=== PATIENT | female | born 1960 | race Caucasian/White ===

== ENCOUNTER 2017-08-02 08:54 | Emergency (ER) | payer SELFPAY ==
[~2017-08-02] VITALS: Ht 160 cm; Wt 80.0 kg
[~2017-08-02 08:54] MED LIST: IBUP800T23 PO; LEVO.15 PO; PENI500T PO; PERI0.126 SWISH-SPIT
[2017-08-02 08:57] VITALS: BP 133/84; PULSE 94; RESP 16; TEMP 98.3; O2SAT 95
[2017-08-02 09:15] VITALS: BP 135/73; PULSE 87; RESP 19; TEMP 99.5; O2SAT 96
--- NOTE | 2017-08-02 09:46 | PD ---
HPI Chief Complaint: Psychiatric Symptoms Time Seen by Provider: 09:22 Travel History International Travel<30 days: No Contact w/Intl Traveler<30days: No Traveled to known affect area: No History of Present Illness HPI 56-year-old female presents to the emergency department voluntarily for psychiatric evaluation because she has not been able to sleep for the past 2-3 days. She has history of bipolar disorder and does not take medication. Denies suicidal or homicidal ideations. Denies visual hallucinations. Reports hearing noises. Denies feeling depressed. She has no current medical complaints. Denies chest pain, shortness of breath, abdominal pain, nausea, vomiting, change in urine or stool. Allergies to codeine. PFSH Past Medical History ADD: Yes Bipolar Disorder: Yes Anxiety: Yes Diminished Hearing: No Musculoskeletal: Yes (DJD/SPINE) Thyroid Disease: Yes Tetanus Vaccination: Unknown Influenza Vaccination: No ?: Not Menopausal: Yes Past Surgical History Section: Yes (X1) Gynecologic Surgery: Yes (C SECTION) Tonsillectomy: Yes Social History Alcohol Use: Yes (RARELY) Tobacco Use: Yes (5 CIGS A DAY) Substance Use: No Allergies-Medications (Allergen,Severity, Reaction): Coded Allergies: codeine (Unverified Adverse Reaction, Intermediate, NAUSEA, 08/02/17) Reported Meds & Prescriptions Reported Meds & Active Scripts Active Reported Synthroid (Levothyroxine Sodium) 150 Mcg Tab 150 Mcg PO DAILY Review of Systems Except as stated in HPI: all other systems reviewed are Neg Physical Exam Narrative GENERAL: Well-nourished, well-developed female patient, in no acute distress SKIN: Warm and dry. HEAD: Atraumatic. Normocephalic. EYES: Pupils equal and round. ENT: Mucosa pink and moist. NECK: Supple. Trachea midline. CARDIOVASCULAR: Regular rate and rhythm. No murmur appreciated. RESPIRATORY: No accessory muscle use. Clear to auscultation. Breath sounds equal bilaterally. GASTROINTESTINAL: Abdomen soft, non-tender, nondistended. Hepatic and splenic margins not palpable. Bowel sounds are active 4 quadrants. MUSCULOSKELETAL: No obvious deformities. No clubbing. No cyanosis. No edema. BACK: No CVA tenderness. NEUROLOGICAL: Awake and alert. Oriented 3. No obvious cranial nerve deficits. Motor grossly within normal limits. Normal speech. Moves all extremities. 5/5 strength to all extremities. PSYCHIATRIC: No delusional thought processes. No hallucinations. Data Data Last Documented VS Vital Signs Date Time Temp Pulse Resp B/P (MAP) Pulse Ox O2 Delivery O2 Flow Rate FiO2 08/02/17 09:15 99.5 87 19 135/73 (93) 96 Room Air Orders Orders Complete Blood Count With Diff (08/02/17 09:22) Comprehensive Metabolic Panel (08/02/17:22) Psych Screen (08/02/17:22) Drug Screen, Random Urine (08/02/17:22) Alcohol (Ethanol) (08/02/17:22) Salicylates (Aspirin) (08/02/17:22) Tylenol (Acetaminophen) (08/02/17:22) MDM Medical Decision Making Medical Screen Exam Complete: Yes Emergency Medical Condition: Yes Medical Record Reviewed: Yes Differential Diagnosis Encounter for psychiatric evaluation, medical clearance for psych evaluation, insomnia, bipolar disorder Narrative Course 56-year-old female presents for psychiatric evaluation for insomnia. History of bipolar disorder. Does not take medications. Denies suicidal or homicidal ideations. Says she's been hearing noises. Denies other hallucinations. Physical examination and vital signs are essentially unremarkable. Patient has no medical complaints to report. Psych screen has been ordered. If the laboratory results are unremarkable, the patient will be medically cleared for psychiatric evaluation and disposition. Diagnosis Primary Impression: Medical clearance for psychiatric admission Condition: Stable Padmini Covington COTTON BALER Aug 02, 2017 09:46
[2017-08-02 10:08] LABS: AUTOMATED NEUTROPHIL # 5.9 TH/MM3 (1.8-7.7); BASOPHIL # 0.1 TH/MM3 (0-0.2); BASOPHIL % 0.7 % (0.0-2.0); EOSINOPHIL # 0.4 TH/MM3 (0-0.4); EOSINOPHIL % 4.9 % (0.0-4.0); HEMATOCRIT 42.2 % (35.0-46.0); HEMO FLAGS DIFF FINAL; LYMPH % 22.9 % (9.0-44.0); LYMPHOCYTE # 2.1 TH/MM3 (1.0-4.8); MEAN CELL VOLUME 88.6 FL (80.0-100.0); MEAN CORPUSCULAR HEMOGLOBIN 30.8 PG (27.0-34.0); MEAN CORPUSCULAR HGB CONC 34.8 % (32.0-36.0); MONO % 5.5 % (0.0-8.0); PLATELET COUNT 321 TH/MM3 (150-450); RED BLOOD COUNT 4.76 MIL/MM3 (4.00-5.30); RED CELL DISTRIBUTION WIDTH 12.4 % (11.6-17.2)
[2017-08-02 10:22] LABS: ALT (GPT) 53 U/L (10-53); ANION GAP 7 MEQ/L (5-15); AST (GOT) 20 U/L (15-37); BLOOD UREA NITROGEN 19 MG/DL (7-18); CHLORIDE 104 MEQ/L (98-107); GLOMERULAR FILTRATION RATE 76 ML/MIN (>89); POTASSIUM 3.9 MEQ/L (3.5-5.1); SODIUM (NA) 138 MEQ/L (136-145)
[2017-08-02 10:24] LABS: ALCOHOL LESS THAN 3 MG/DL (0-5)
[2017-08-02 10:25] LABS: ALKALINE PHOSPHATASE 104 U/L (45-117); TOTAL BILIRUBIN ADULT 0.3 MG/DL (0.2-1.0)
[2017-08-02 10:33] LABS: ACETAMINOPHEN LESS THAN 2.0 MCG/ML (10.0-30.0)
[2017-08-02 11:59] VITALS: BP 188/86; PULSE 74; RESP 18; O2SAT 100
[2017-08-02 14:47] VITALS: BP 168/79; PULSE 63; RESP 18; O2SAT 99
== END 2017-08-02 16:22 | disposition left against medical advice (07) ==
LOC: NEPD 08:54
DX: F31.9 Bipolar disorder, unspecified (principal); Z72.0 Tobacco use
CPT/HCPCS: 80053; 80307; 85025; 99283

== ENCOUNTER 2017-08-03 14:47 | Emergency (ER) | payer SELFPAY ==
[~2017-08-03] VITALS: Ht 160 cm; Wt 100.0 kg
[~2017-08-03 14:47] MED LIST changes: -IBUP800T23 PO; -PENI500T PO; -PERI0.126 SWISH-SPIT
[2017-08-03 14:51] VITALS: BP 129/81; PULSE 88; RESP 22; TEMP 99.6; O2SAT 94
--- NOTE | 2017-08-03 14:56 | PD ---
Physical Exam Date Seen by Provider: Aug 03, 2017 Time Seen by Provider: 14:54 Narrative 56 yo female here for psych eval. Feeling that needs psych eval. Not sleeping. Seen yesterday and had blood work and sent home. No other medical issues. Here voluntarily. Blood work yesterday showed positive for cocaine. Vitals are stable in triage. Awaiting bed placement. Data Data Last Documented VS Vital Signs Date Time Temp Pulse Resp B/P (MAP) Pulse Ox O2 Delivery O2 Flow Rate FiO2 08/03/17 14:51 99.6 88 22 129/81 (97) 94 Room Air [facility] Medical Record Reviewed: Yes Supervised Visit with DELMI: Jim Dugan Aug 03, 2017 14:56
== END 2017-08-03 17:18 | disposition left against medical advice (07) ==
LOC: NED 14:47
DX: F99 Mental disorder, not otherwise specified (principal)
CPT/HCPCS: 99282

== ENCOUNTER 2017-09-23 19:37 | Emergency (ER) | payer SELFPAY ==
[2017-09-23 19:39] VITALS: BP 144/67; PULSE 92; RESP 16; TEMP 98.1; O2SAT 99
[2017-09-23 21:21] VITALS: BP 123/83; PULSE 82; RESP 18; TEMP 98.4; O2SAT 100
--- NOTE | 2017-09-23 21:40 | PD ---
HPI Chief Complaint: Fall Time Seen by Provider: 21:25 Travel History International Travel<30 days: No Contact w/Intl Traveler<30days: No Traveled to known affect area: No History of Present Illness HPI Patient is a 56-year-old female who presents to emergency room after a fall today. Patient reports that she was trying to get into her car, reports that her flip flop got caught in asphalt which resulted in her falling backwards and landing onto her left side. Patient reports that she did hit her head on the asphalt, reports no loss of consciousness. Patient reports mild posterior headache, which that she has pains to her left hand digit #3 as her finger bent backwards during the fall, patient also complains of swelling and pain to the left ankle. Patient reports that she has chronic low back pain, reports that she has disc disease but reports acute on chronic low back pain at this time. PFSH Past Medical History ADD: Yes Bipolar Disorder: Yes Anxiety: Yes Diminished Hearing: No Musculoskeletal: Yes (DJD/SPINE) Thyroid Disease: Yes ?: Not Menopausal: Yes Past Surgical History Section: Yes (X1) Gynecologic Surgery: Yes (C SECTION) Tonsillectomy: Yes Social History Alcohol Use: Yes (RARELY) Tobacco Use: Yes (5 CIGS A DAY) Substance Use: No Allergies-Medications (Allergen,Severity, Reaction): Coded Allergies: codeine (Unverified Adverse Reaction, Intermediate, NAUSEA, 08/02/17) Reported Meds & Prescriptions Reported Meds & Active Scripts Active Reported Synthroid (Levothyroxine Sodium) 150 Mcg Tab 150 Mcg PO DAILY Review of Systems General / Constitutional: No: Fever Eyes: No: Visual changes HENT: Positive: Headaches Cardiovascular: No: Chest Pain or Discomfort Respiratory: No: Shortness of Breath Gastrointestinal: No: Abdominal Pain Genitourinary: No: Dysuria Musculoskeletal: Positive: Limited ROM, Pain (left finger digit #3, left ankle pain, low back pain) Skin: No Rash Neurologic: No: Weakness Psychiatric: No: Depression Endocrine: No: Polydipsia Hematologic/Lymphatic: No: Easy Bruising Physical Exam Narrative GENERAL: Mild distress SKIN: Focused skin assessment warm/dry. HEAD: Atraumatic. Normocephalic. EYES: Pupils equal and round. No scleral icterus. No injection or drainage. ENT: No nasal bleeding or discharge. Mucous membranes pink and moist. NECK: Trachea midline. No JVD. CARDIOVASCULAR: Regular rate and rhythm. No murmur appreciated. RESPIRATORY: No accessory muscle use. Clear to auscultation. Breath sounds equal bilaterally. GASTROINTESTINAL: Abdomen soft, non-tender, nondistended. Hepatic and splenic margins not palpable. MUSCULOSKELETAL: No obvious deformities. No clubbing. No cyanosis. left hand: pain with ROM to left digit #3, no open fx, pulses intact, neurovascularly intact, normal range of motion to left wrist and left shoulder, right hand: Normal exam Left lower extremity: Normal range of motion to the left hip, left knee, patient with pain to the lateral malleolus, no signs of open fracture, pulses intact, neurovascular intact Right lower extremity: Normal exam There is no cervical or thoracic midline tenderness no lumbar midline tenderness , patient with lumbar paraspinal tenderness. NEUROLOGICAL: Awake and alert. No obvious cranial nerve deficits. Motor grossly within normal limits. Normal speech. PSYCHIATRIC: Appropriate mood and affect; insight and judgment normal. Data Data Last Documented VS Vital Signs Date Time Temp Pulse Resp B/P (MAP) Pulse Ox O2 Delivery O2 Flow Rate FiO2 09/23/17 21:21 98.4 82 18 123/83 (96) 100 Room Air Orders Orders Ct Brain W/O Iv Contrast(Rout) (09/23/17 21:31) Spine, Lumbar - Ltd (Ap & Lat) (09/23/17 ) Hand, Complete ([id number]) (09/23/17 ) Ankle, Complete ([id number]) (09/23/17 ) Ice/Cold Pack (09/23/17 21:32) Ketorolac Inj (Toradol Inj) (09/23/17 21:45) Shoulder, Complete (>2vws) (09/23/17 ) Ed Discharge Order (09/24/17 00:14) MDM Medical Decision Making Medical Screen Exam Complete: Yes Emergency Medical Condition: Yes Medical Record Reviewed: Yes Interpretation(s) Vital Signs Date Time Temp Pulse Resp B/P (MAP) Pulse Ox O2 Delivery O2 Flow Rate FiO2 09/23/17 21:21 98.4 82 18 123/83 (96) 100 Room Air 09/23/17 19:39 98.1 92 16 144/67 (92) 99 Room Air Differential Diagnosis Lumbar strain, fracture, versus strain, intracranial hemorrhage, concussion Narrative Course During the course of the patients emergency department visit, the patients history, examination, and differential diagnosis were reviewed with the patient. The patient was placed on a pm head cook with oximetry and frequent blood pressure monitoring. Radiology studies were reviewed and remarkable for: CT of the head with no acute disease X-ray of the right shoulder: No acute disease X-ray of the left hand: No acute disease X-ray of left ankle: Mild lateral soft tissue swelling, no bony injury seen. X-ray of the lumbar spine: Degenerative changes Patient with no acute fracture this time. I reviewed all studies with patient in detail, patient will follow-up with her primary care doctor as well as orthopedic surgeon, she will return to the emergency room as needed. Diagnosis Primary Impression: Ankle sprain Qualified Codes: S93.402A - Sprain of unspecified ligament of left ankle, initial encounter Additional Impressions: Low back pain Qualified Codes: M54.5 - Low back pain; G89.29 - Other chronic pain Head injury Qualified Codes: S09.90XA - Unspecified injury of head, initial encounter Patient Instructions: General Instructions Additional Instructions: Please provide patient with a copy of her studies at discharge Please follow up with your primary care doctor in 2-3 days Return to the ER if symptoms worsen or progress Return to the ER as needed Please follow up with orthopedic surgeon and return to the emergency room as needed. Disposition: 01 DISCHARGE HOME Condition: Stable Dixie Pazfer Cristino BEDOLLA Sep 23, 2017 21:40
[2017-09-23] MEDS ORDERED: KETOROLAC TROMETHAMINE 60 MG/2 ML (IM) VIAL IM ONE (21:45)
--- NOTE | 2017-09-23 22:37 | RADRPT ---
EXAM DATE/TIME: 09/23/2017 21:48 [facility] COMPARISON: No previous studies available for comparison. INDICATIONS : Fall tonight. Pain in 3rd digit. MEDICAL HISTORY : None. SURGICAL HISTORY : None. ENCOUNTER: Initial ACUITY: 1 day PAIN SCORE: 7/10 LOCATION: Left Hand FINDINGS: Three view examination of the left hand demonstrates no soft tissue swelling, dislocation, or fractur e. The carpal bones appear intact. The interphalangeal and metacarpophalangeal joints are intact. Bony mineralization is normal. CONCLUSION: No acute disease. Jamil Chin MD on September 23, 2017 at 22:34 Board Certified Radiologist. This report was verified electronically.
--- NOTE | 2017-09-23 22:38 | RADRPT ---
EXAM DATE/TIME: 09/23/2017 21:52 [facility] COMPARISON: No previous studies available for comparison. INDICATIONS : Fall tonight. Pain in lateral side. MEDICAL HISTORY : None. SURGICAL HISTORY : None. ENCOUNTER: Initial ACUITY: 1 day PAIN SCORE: 7/10 LOCATION: Left Ankle FINDINGS: Three view exam was performed of the left ankle. The bony structures are in normal alignment. No ev idence of fracture, dislocation. The ankle mortise is intact. No radiopaque foreign bodies are seen . Bony mineralization is normal. There is mild lateral soft tissue swelling. CONCLUSION: Mild lateral soft tissue swelling. A bony injury is not seen. Jamil Chin MD on September 23, 2017 at 22:35 Board Certified Radiologist. This report was verified electronically.
--- NOTE | 2017-09-23 22:38 | RADRPT ---
EXAM DATE/TIME: 09/23/2017 21:52 [facility] COMPARISON: No previous studies available for comparison. INDICATIONS : Fall tonight. MEDICAL HISTORY : None. SURGICAL HISTORY : None. ENCOUNTER: Initial ACUITY: 1 day PAIN SCORE: 7/10 LOCATION: Right Shoulder. FINDINGS: The glenohumeral and acromioclavicular joints are normally aligned. There is mild hypertrophic change at the acromioclavicular joint. No fracture is seen. CONCLUSION: No acute disease. Jamil Chin MD on September 23, 2017 at 22:36 Board Certified Radiologist. This report was verified electronically.
--- NOTE | 2017-09-23 22:40 | RADRPT ---
EXAM DATE/TIME: 09/23/2017 21:58 [facility] COMPARISON: No previous studies available for comparison. INDICATIONS : Fall tonight. MEDICAL HISTORY : None. SURGICAL HISTORY : None. ENCOUNTER: Initial ACUITY: 1 day PAIN SCORE: 8/10 LOCATION: Bilateral L-spine FINDINGS: The lumbar vertebral bodies are normal in height. They are normally aligned. There is disc space narr owing and vacuum phenomenon seen at the L4-L5 level. There is facet hypertrophy at the L4-L5 and L5-S 1 levels. The sacroiliac joints are normal. Minimal marginal osteophytes are seen at the lower lumbar spine. CONCLUSION: Degenerative change. Jamil Chin MD on September 23, 2017 at 22:37 Board Certified Radiologist. This report was verified electronically.
--- NOTE | 2017-09-23 22:44 | RADRPT ---
EXAM DATE/TIME: 09/23/2017 22:15 [facility] COMPARISON: No previous studies available for comparison. INDICATIONS : Trauma, fall. RADIATION DOSE: 32.64 CTDIvol (mGy) MEDICAL HISTORY : None SURGICAL HISTORY : None. ENCOUNTER: Initial ACUITY: 1 day PAIN SCALE: 4/10 LOCATION: cranial TECHNIQUE: Multiple contiguous axial images were obtained of the head. Using automated exposure control and adj ustment of the mA and/or kV according to patient size, radiation dose was kept as low as reasonably a chievable to obtain optimal diagnostic quality images. DICOM format image data is available electro nically for review and comparison. FINDINGS: CEREBRUM: The ventricles are normal for age. No evidence of midline shift, mass lesion, hemorrhage or acute in farction. No extra-axial fluid collections are seen. POSTERIOR FOSSA: The cerebellum and brainstem are intact. The 4th ventricle is midline. The cerebellopontine angle i s unremarkable. EXTRACRANIAL: The visualized portion of the orbits is intact. SKULL: The calvaria is intact. No evidence of skull fracture. CONCLUSION: No acute disease. Jamil Chin MD on September 23, 2017 at 22:42 Board Certified Radiologist. This report was verified electronically.
== END 2017-09-24 00:44 | disposition home or self-care (01) ==
LOC: NEPD 19:37
DX: S93.402A Sprain of unspecified ligament of left ankle, initial encounter (principal); S09.90XA Unspecified injury of head, initial encounter; M54.5 Low back pain; G89.29 Other chronic pain; M79.642 Pain in left hand; W19.XXXA Unspecified fall, initial encounter; Y93.89 Activity, other specified
CPT/HCPCS: 70450; 72100; 73030; 73130; 73610; 96372; 99285; J1885

== ENCOUNTER 2018-07-22 15:54 | Inpatient (IN) ==
[2018-07-22 22:18] LABS: Baso # (Auto) 0.1 th/mm3 (0.0-0.2); Eos # (Auto) 0.3 th/mm3 (0.0-0.4); Eos % (Auto) 2.7 % (0.0-4.0); Hematocrit 43.2 % (35.0-46.0); Hemoglobin 15.5 gm/dL (11.6-15.3); Lymph # (Auto) 3.3 th/mm3 (1.0-4.8); Lymph % (Auto) 29.1 % (9.0-44.0); Mean Corpuscular HGB Conc 35.8 % (32.0-36.0); Mean Corpuscular Hemoglobin 31.5 pg (27.0-34.0); Mean Corpuscular Volume 88.1 fL (80.0-100.0); Mean Platelet Volume 8.2 fL (7.0-11.0); Mono # (Auto) 0.8 th/mm3 (0.0-0.9); Mono % (Auto) 6.9 % (0.0-8.0); Neut # (Auto) 6.7 th/mm3 (1.8-7.7); Neut % (Auto) 60.3 % (16.0-70.0); Platelet Count 358 th/mm3 (150-450); Red Cell Distribution Width 12.5 % (11.6-17.2); White Blood Count 11.2 th/mm3 (4.0-11.0)
[2018-07-22 22:19] LABS: Amphetamine Screen,Urine Neg (Neg); Barbiturate Screen,Urine Neg (Neg); Cannabinoid Screen,Urine Neg (Neg); Cocaine Screen,Urine Neg (Neg)
[2018-07-22 22:20] LABS: Opiate Screen,Urine Neg (Neg)
[2018-07-22 22:40] LABS: Alanine Aminotransferase 206 U/L (10-53); Albumin 3.3 g/dL (3.4-5.0); Anion Gap 13 meq/L (5-15); Aspartate Aminotransferase 114 U/L (15-37); Blood Urea Nitrogen 18 mg/dL (7-18); Calcium 8.6 mg/dL (8.5-10.1); Carbon Dioxide 26.4 meq/L (21.0-32.0); Chloride 94 meq/L (98-107); Glomerular Filtration Rate 50 mL/min (>89); Sodium 133 meq/L (136-145)
[2018-07-22 22:43] LABS: Glucose,Random 603 mg/dL (74-106)
[2018-07-22 22:50] LABS: Alkaline Phosphatase 117 U/L (45-117); Total Protein 7.1 g/dL (6.4-8.2)
[2018-07-22] MEDS ORDERED: Ibuprofen 600 MG Tablet PO ONE (22:50)
--- NOTE | 2018-07-22 23:16 | ED ---
HPI General Chief Complaint: Psychiatric Symptoms Stated Complaint: eval Time Seen by Provider: 07/22/18 21:07 Source: patient Mode of arrival: ambulatory Limitations: no limitations History of Present Illness HPI Narrative: 57-year-old female with history of hypothyroidism presents the ED for voluntary psychiatric evaluation. Patient endorses suicidal ideations times 1 week. She denies a specific plan. She states that she is feeling suicidal because she recently became homeless. On presentation she complains of dental pain with facial swelling. Pain is aching, 6/10, worsened by cold fluids. No alleviating factors reported. She denies fever, chills, nausea, vomiting, difficulty swallowing her own secretions. She endorses broken and missing teeth in the area. She does not have a dentist. She states that she takes levothyroxine daily. No treatment attempted before arrival. Related Data Home Medications Medication Instructions Recorded Confirmed levothyroxine 88 mcg PO DAILY 07/22/18 07/22/18 Previous Rx's Medication Instructions Recorded metformin 500 mg PO BID #60 tab 07/23/18 penicillin V potassium 500 mg PO Q6H 10 Days #40 tab 07/23/18 Allergies Allergy/AdvReac Type Severity Reaction Status Date / Time codeine AdvReac Intermediate NAUSEA Verified 07/22/18 21:32 Review of Systems ROS: all other systems reviewed are negative PMFSH Social History Social History Substance History: Past History Second Hand Smoke Exposure: Yes Smoking Status: Heavy tobacco smoker Tobacco Type: Cigarettes How Often Do You Have a Drink Containing Alcohol: Never Recent Travel in [facility] within the Last 8 Weeks: No Recent Out of Country Travel within the Last 8 Weeks: No Immunization History Tetanus Immunization: Unsure Hx Influenza Vaccine This Season: No Exam Narrative Exam Narrative: GENERAL: Well-nourished, well-developed disheveled white female no acute distress. SKIN: Focused skin assessment warm/dry. HEAD: Atraumatic. Normocephalic. EYES: Pupils equal and round. No scleral icterus. No injection or drainage. ENT: No nasal bleeding or discharge. Mucous membranes pink and moist. DENTAL: Poor dentition overall. Several missing and broken teeth in the right lower mandible. Gingivitis present. No drainable abscess noted. NECK: Trachea midline. No JVD. CARDIOVASCULAR: Regular rate and rhythm. No murmur appreciated. RESPIRATORY: No accessory muscle use. Clear to auscultation. Breath sounds equal bilaterally. GASTROINTESTINAL: Abdomen soft, non-tender, nondistended. Hepatic and splenic margins not palpable. MUSCULOSKELETAL: No obvious deformities. No clubbing. No cyanosis. No edema. NEUROLOGICAL: Awake and alert. No obvious cranial nerve deficits. Motor grossly within normal limits. Normal speech. PSYCHIATRIC: Appropriate mood and affect; insight and judgment normal. Course Initial Documented Vital Signs Temperature 98.2 F 07/22/18 15:56 Pulse Rate 85 07/22/18 15:56 Respiratory Rate 16 07/22/18 15:56 Blood Pressure 122/78 07/22/18 15:56 Pulse Oximetry 97 07/22/18 15:56 Last Documented Vital Signs Temperature 97.4 F L 07/25/18 06:02 Pulse Rate 65 07/25/18 06:02 Respiratory Rate 16 07/25/18 06:02 Blood Pressure 89/55 L 07/25/18 06:02 Pulse Oximetry 95 07/25/18 06:02 Medical Decision Making MDM Narrative Medical decision making narrative: 57-year-old female presents the ED for voluntary psychiatric evaluation. Also complains of dental pain. Vitals reviewed. On physical exam she has several broken teeth and tender erythema of the gum lines. Exam otherwise unremarkable. Lab work reveals blood glucose 603. She was administered 8 units of insulin, allowed to rehydrate. Blood glucose was checked periodically through the night. Blood glucose this morning 383. Patient was administered 6 additional units of insulin. Will start her on metformin 500 mg twice daily. Will also treat the dental problem with penicillin VK 500 mg 4 times daily times 10 days. The patient is medically cleared for psychiatric evaluation. Medical Screen Exam Complete: Yes Emergency Medical Condition: Yes Differential Diagnosis Differential Diagnosis: Adjustment disorder versus anxiety versus bipolar versus depression versus dementia versus malingering versus mood disorder versus substance-induced mood disorder versus dental pain versus dental fracture versus dentalgia versus new onset diabetes versus other Lab Data Result diagrams: 07/22/18 22:00 07/22/18 22:00 Lab Results 07/22/18 07/22/18 07/22/18 Range/Units 22:00 22:00 22:00 WBC 11.2 H (4.0-11.0) th/mm3 RBC 4.90 (4.00-5.30) mil/mm3 Hgb 15.5 H (11.6-15.3) gm/dL Hct 43.2 (35.0-46.0) % MCV 88.1 (80.0-100.0) fL MCH 31.5 (27.0-34.0) pg MCHC 35.8 (32.0-36.0) % RDW 12.5 (11.6-17.2) % Plt Count 358 (150-450) th/mm3 MPV 8.2 (7.0-11.0) fL Neut % (Auto) 60.3 (16.0-70.0) % Lymph % (Auto) 29.1 (9.0-44.0) % [place] % (Auto) 6.9 (0.0-8.0) % Eos % (Auto) 2.7 (0.0-4.0) % Baso % (Auto) 1.0 (0.0-2.0) % Neut # (Auto) 6.7 (1.8-7.7) th/mm3 Lymph # (Auto) 3.3 (1.0-4.8) th/mm3 [place] # (Auto) 0.8 (0.0-0.9) th/mm3 Eos # (Auto) 0.3 (0.0-0.4) th/mm3 Baso # (Auto) 0.1 (0.0-0.2) th/mm3 WBC Differential . Differential Comment Auto diff final Sodium 133 L (136-145) meq/L Potassium 4.0 (3.5-5.1) meq/L Chloride 94 L (98-107) meq/L Carbon Dioxide 26.4 (21.0-32.0) meq/L Anion Gap 13 (5-15) meq/L BUN 18 (7-18) mg/dL Creatinine 1.13 H (0.50-1.00) mg/dL Estimated GFR 50 L (>89) mL/min POC Glucose (68-110) mg/dl Random Glucose 603 H* (74-106) mg/dL Hemoglobin A1c (4.3-6.0) % Calcium 8.6 (8.5-10.1) mg/dL Total Bilirubin 0.6 (0.2-1.0) mg/dL AST 114 H (15-37) U/L ALT 206 H (10-53) U/L Alkaline Phosphatase 117 (45-117) U/L Total Protein 7.1 (6.4-8.2) g/dL Albumin 3.3 L (3.4-5.0) g/dL Triglycerides (42-150) mg/dL Cholesterol (120-200) mg/dL LDL Cholesterol, Calc (0-99) mg/dL HDL Cholesterol (40.0-60.0) mg/dL Cholesterol/HDL Ratio Ratio TSH 23.000 H (0.358-3.740) uIU/mL Urine Opiates Screen Neg (Neg) Ur Barbiturates Screen Neg (Neg) Ur Amphetamines Screen Neg (Neg) U Benzodiazepines Scrn Neg (Neg) Urine Cocaine Screen Neg (Neg) U Cannabinoids Screen Neg (Neg) Serum Alcohol Less than 3 (0-5) mg/dL 07/22/18 07/22/18 07/23/18 Range/Units 22:53 23:58 02:29 WBC (4.0-11.0) th/mm3 RBC (4.00-5.30) mil/mm3 Hgb (11.6-15.3) gm/dL Hct (35.0-46.0) % MCV (80.0-100.0) fL MCH (27.0-34.0) pg MCHC (32.0-36.0) % RDW (11.6-17.2) % Plt Count (150-450) th/mm3 MPV (7.0-11.0) fL Neut % (Auto) (16.0-70.0) % Lymph % (Auto) (9.0-44.0) % [place] % (Auto) (0.0-8.0) % Eos % (Auto) (0.0-4.0) % Baso % (Auto) (0.0-2.0) % Neut # (Auto) (1.8-7.7) th/mm3 Lymph # (Auto) (1.0-4.8) th/mm3 [place] # (Auto) (0.0-0.9) th/mm3 Eos # (Auto) (0.0-0.4) th/mm3 Baso # (Auto) (0.0-0.2) th/mm3 WBC Differential Differential Comment Sodium (136-145) meq/L Potassium (3.5-5.1) meq/L Chloride (98-107) meq/L Carbon Dioxide (21.0-32.0) meq/L Anion Gap (5-15) meq/L BUN (7-18) mg/dL Creatinine (0.50-1.00) mg/dL Estimated GFR (>89) mL/min POC Glucose 563 H* 587 H* 493 H* (68-110) mg/dl Random Glucose (74-106) mg/dL Hemoglobin A1c (4.3-6.0) % Calcium (8.5-10.1) mg/dL Total Bilirubin (0.2-1.0) mg/dL AST (15-37) U/L ALT (10-53) U/L Alkaline Phosphatase (45-117) U/L Total Protein (6.4-8.2) g/dL Albumin (3.4-5.0) g/dL Triglycerides (42-150) mg/dL Cholesterol (120-200) mg/dL LDL Cholesterol, Calc (0-99) mg/dL HDL Cholesterol (40.0-60.0) mg/dL Cholesterol/HDL Ratio Ratio TSH (0.358-3.740) uIU/mL Urine Opiates Screen (Neg) Ur Barbiturates Screen (Neg) Ur Amphetamines Screen (Neg) U Benzodiazepines Scrn (Neg) Urine Cocaine Screen (Neg) U Cannabinoids Screen (Neg) Serum Alcohol (0-5) mg/dL 07/23/18 07/23/18 07/23/18 Range/Units 05:18 06:55 10:03 WBC (4.0-11.0) th/mm3 RBC (4.00-5.30) mil/mm3 Hgb (11.6-15.3) gm/dL Hct (35.0-46.0) % MCV (80.0-100.0) fL MCH (27.0-34.0) pg MCHC (32.0-36.0) % RDW (11.6-17.2) % Plt Count (150-450) th/mm3 MPV (7.0-11.0) fL Neut % (Auto) (16.0-70.0) % Lymph % (Auto) (9.0-44.0) % [place] % (Auto) (0.0-8.0) % Eos % (Auto) (0.0-4.0) % Baso % (Auto) (0.0-2.0) % Neut # (Auto) (1.8-7.7) th/mm3 Lymph # (Auto) (1.0-4.8) th/mm3 [place] # (Auto) (0.0-0.9) th/mm3 Eos # (Auto) (0.0-0.4) th/mm3 Baso # (Auto) (0.0-0.2) th/mm3 WBC Differential Differential Comment Sodium (136-145) meq/L Potassium (3.5-5.1) meq/L Chloride (98-107) meq/L Carbon Dioxide (21.0-32.0) meq/L Anion Gap (5-15) meq/L BUN (7-18) mg/dL Creatinine (0.50-1.00) mg/dL Estimated GFR (>89) mL/min POC Glucose 383 H 323 H 354 H (68-110) mg/dl Random Glucose (74-106) mg/dL Hemoglobin A1c (4.3-6.0) % Calcium (8.5-10.1) mg/dL Total Bilirubin (0.2-1.0) mg/dL AST (15-37) U/L ALT (10-53) U/L Alkaline Phosphatase (45-117) U/L Total Protein (6.4-8.2) g/dL Albumin (3.4-5.0) g/dL Triglycerides (42-150) mg/dL Cholesterol (120-200) mg/dL LDL Cholesterol, Calc (0-99) mg/dL HDL Cholesterol (40.0-60.0) mg/dL Cholesterol/HDL Ratio Ratio TSH (0.358-3.740) uIU/mL Urine Opiates Screen (Neg) Ur Barbiturates Screen (Neg) Ur Amphetamines Screen (Neg) U Benzodiazepines Scrn (Neg) Urine Cocaine Screen (Neg) U Cannabinoids Screen (Neg) Serum Alcohol (0-5) mg/dL 07/23/18 07/23/18 07/23/18 Range/Units 11:51 13:22 14:39 WBC (4.0-11.0) th/mm3 RBC (4.00-5.30) mil/mm3 Hgb (11.6-15.3) gm/dL Hct (35.0-46.0) % MCV (80.0-100.0) fL MCH (27.0-34.0) pg MCHC (32.0-36.0) % RDW (11.6-17.2) % Plt Count (150-450) th/mm3 MPV (7.0-11.0) fL Neut % (Auto) (16.0-70.0) % Lymph % (Auto) (9.0-44.0) % [place] % (Auto) (0.0-8.0) % Eos % (Auto) (0.0-4.0) % Baso % (Auto) (0.0-2.0) % Neut # (Auto) (1.8-7.7) th/mm3 Lymph # (Auto) (1.0-4.8) th/mm3 [place] # (Auto) (0.0-0.9) th/mm3 Eos # (Auto) (0.0-0.4) th/mm3 Baso # (Auto) (0.0-0.2) th/mm3 WBC Differential Differential Comment Sodium (136-145) meq/L Potassium (3.5-5.1) meq/L Chloride (98-107) meq/L Carbon Dioxide (21.0-32.0) meq/L Anion Gap (5-15) meq/L BUN (7-18) mg/dL Creatinine (0.50-1.00) mg/dL Estimated GFR (>89) mL/min POC Glucose 333 H 249 H 314 H (68-110) mg/dl Random Glucose (74-106) mg/dL Hemoglobin A1c (4.3-6.0) % Calcium (8.5-10.1) mg/dL Total Bilirubin (0.2-1.0) mg/dL AST (15-37) U/L ALT (10-53) U/L Alkaline Phosphatase (45-117) U/L Total Protein (6.4-8.2) g/dL Albumin (3.4-5.0) g/dL Triglycerides (42-150) mg/dL Cholesterol (120-200) mg/dL LDL Cholesterol, Calc (0-99) mg/dL HDL Cholesterol (40.0-60.0) mg/dL Cholesterol/HDL Ratio Ratio TSH (0.358-3.740) uIU/mL Urine Opiates Screen (Neg) Ur Barbiturates Screen (Neg) Ur Amphetamines Screen (Neg) U Benzodiazepines Scrn (Neg) Urine Cocaine Screen (Neg) U Cannabinoids Screen (Neg) Serum Alcohol (0-5) mg/dL 07/23/18 07/24/18 07/24/18 Range/Units 16:05 06:16 06:51 WBC (4.0-11.0) th/mm3 RBC (4.00-5.30) mil/mm3 Hgb (11.6-15.3) gm/dL Hct (35.0-46.0) % MCV (80.0-100.0) fL MCH (27.0-34.0) pg MCHC (32.0-36.0) % RDW (11.6-17.2) % Plt Count (150-450) th/mm3 MPV (7.0-11.0) fL Neut % (Auto) (16.0-70.0) % Lymph % (Auto) (9.0-44.0) % [place] % (Auto) (0.0-8.0) % Eos % (Auto) (0.0-4.0) % Baso % (Auto) (0.0-2.0) % Neut # (Auto) (1.8-7.7) th/mm3 Lymph # (Auto) (1.0-4.8) th/mm3 [place] # (Auto) (0.0-0.9) th/mm3 Eos # (Auto) (0.0-0.4) th/mm3 Baso # (Auto) (0.0-0.2) th/mm3 WBC Differential Differential Comment Sodium (136-145) meq/L Potassium (3.5-5.1) meq/L Chloride (98-107) meq/L Carbon Dioxide (21.0-32.0) meq/L Anion Gap (5-15) meq/L BUN (7-18) mg/dL Creatinine (0.50-1.00) mg/dL Estimated GFR (>89) mL/min POC Glucose 322 H 313 H (68-110) mg/dl Random Glucose (74-106) mg/dL Hemoglobin A1c 15.9 H (4.3-6.0) % Calcium (8.5-10.1) mg/dL Total Bilirubin (0.2-1.0) mg/dL AST (15-37) U/L ALT (10-53) U/L Alkaline Phosphatase (45-117) U/L Total Protein (6.4-8.2) g/dL Albumin (3.4-5.0) g/dL Triglycerides (42-150) mg/dL Cholesterol (120-200) mg/dL LDL Cholesterol, Calc (0-99) mg/dL HDL Cholesterol (40.0-60.0) mg/dL Cholesterol/HDL Ratio Ratio TSH (0.358-3.740) uIU/mL Urine Opiates Screen (Neg) Ur Barbiturates Screen (Neg) Ur Amphetamines Screen (Neg) U Benzodiazepines Scrn (Neg) Urine Cocaine Screen (Neg) U Cannabinoids Screen (Neg) Serum Alcohol (0-5) mg/dL 07/24/18 07/24/18 07/24/18 Range/Units 06:51 11:10 16:11 WBC (4.0-11.0) th/mm3 RBC (4.00-5.30) mil/mm3 Hgb (11.6-15.3) gm/dL Hct (35.0-46.0) % MCV (80.0-100.0) fL MCH (27.0-34.0) pg MCHC (32.0-36.0) % RDW (11.6-17.2) % Plt Count (150-450) th/mm3 MPV (7.0-11.0) fL Neut % (Auto) (16.0-70.0) % Lymph % (Auto) (9.0-44.0) % [place] % (Auto) (0.0-8.0) % Eos % (Auto) (0.0-4.0) % Baso % (Auto) (0.0-2.0) % Neut # (Auto) (1.8-7.7) th/mm3 Lymph # (Auto) (1.0-4.8) th/mm3 [place] # (Auto) (0.0-0.9) th/mm3 Eos # (Auto) (0.0-0.4) th/mm3 Baso # (Auto) (0.0-0.2) th/mm3 WBC Differential Differential Comment Sodium (136-145) meq/L Potassium (3.5-5.1) meq/L Chloride (98-107) meq/L Carbon Dioxide (21.0-32.0) meq/L Anion Gap (5-15) meq/L BUN (7-18) mg/dL Creatinine (0.50-1.00) mg/dL Estimated GFR (>89) mL/min POC Glucose 325 H 279 H (68-110) mg/dl Random Glucose (74-106) mg/dL Hemoglobin A1c (4.3-6.0) % Calcium (8.5-10.1) mg/dL Total Bilirubin (0.2-1.0) mg/dL AST (15-37) U/L ALT (10-53) U/L Alkaline Phosphatase (45-117) U/L Total Protein (6.4-8.2) g/dL Albumin (3.4-5.0) g/dL Triglycerides 115 (42-150) mg/dL Cholesterol 174 (120-200) mg/dL LDL Cholesterol, Calc 99 (0-99) mg/dL HDL Cholesterol 52.5 (40.0-60.0) mg/dL Cholesterol/HDL Ratio 3.31 Ratio TSH (0.358-3.740) uIU/mL Urine Opiates Screen (Neg) Ur Barbiturates Screen (Neg) Ur Amphetamines Screen (Neg) U Benzodiazepines Scrn (Neg) Urine Cocaine Screen (Neg) U Cannabinoids Screen (Neg) Serum Alcohol (0-5) mg/dL 07/24/18 07/25/18 07/25/18 Range/Units 20:35 05:42 07:14 WBC (4.0-11.0) th/mm3 RBC (4.00-5.30) mil/mm3 Hgb (11.6-15.3) gm/dL Hct (35.0-46.0) % MCV (80.0-100.0) fL MCH (27.0-34.0) pg MCHC (32.0-36.0) % RDW (11.6-17.2) % Plt Count (150-450) th/mm3 MPV (7.0-11.0) fL Neut % (Auto) (16.0-70.0) % Lymph % (Auto) (9.0-44.0) % [place] % (Auto) (0.0-8.0) % Eos % (Auto) (0.0-4.0) % Baso % (Auto) (0.0-2.0) % Neut # (Auto) (1.8-7.7) th/mm3 Lymph # (Auto) (1.0-4.8) th/mm3 [place] # (Auto) (0.0-0.9) th/mm3 Eos # (Auto) (0.0-0.4) th/mm3 Baso # (Auto) (0.0-0.2) th/mm3 WBC Differential Differential Comment Sodium (136-145) meq/L Potassium (3.5-5.1) meq/L Chloride (98-107) meq/L Carbon Dioxide (21.0-32.0) meq/L Anion Gap (5-15) meq/L BUN (7-18) mg/dL Creatinine (0.50-1.00) mg/dL Estimated GFR (>89) mL/min POC Glucose 268 H 350 H 336 H (68-110) mg/dl Random Glucose (74-106) mg/dL Hemoglobin A1c (4.3-6.0) % Calcium (8.5-10.1) mg/dL Total Bilirubin (0.2-1.0) mg/dL AST (15-37) U/L ALT (10-53) U/L Alkaline Phosphatase (45-117) U/L Total Protein (6.4-8.2) g/dL Albumin (3.4-5.0) g/dL Triglycerides (42-150) mg/dL Cholesterol (120-200) mg/dL LDL Cholesterol, Calc (0-99) mg/dL HDL Cholesterol (40.0-60.0) mg/dL Cholesterol/HDL Ratio Ratio TSH (0.358-3.740) uIU/mL Urine Opiates Screen (Neg) Ur Barbiturates Screen (Neg) Ur Amphetamines Screen (Neg) U Benzodiazepines Scrn (Neg) Urine Cocaine Screen (Neg) U Cannabinoids Screen (Neg) Serum Alcohol (0-5) mg/dL 07/25/18 Range/Units 11:28 WBC (4.0-11.0) th/mm3 RBC (4.00-5.30) mil/mm3 Hgb (11.6-15.3) gm/dL Hct (35.0-46.0) % MCV (80.0-100.0) fL MCH (27.0-34.0) pg MCHC (32.0-36.0) % RDW (11.6-17.2) % Plt Count (150-450) th/mm3 MPV (7.0-11.0) fL Neut % (Auto) (16.0-70.0) % Lymph % (Auto) (9.0-44.0) % [place] % (Auto) (0.0-8.0) % Eos % (Auto) (0.0-4.0) % Baso % (Auto) (0.0-2.0) % Neut # (Auto) (1.8-7.7) th/mm3 Lymph # (Auto) (1.0-4.8) th/mm3 [place] # (Auto) (0.0-0.9) th/mm3 Eos # (Auto) (0.0-0.4) th/mm3 Baso # (Auto) (0.0-0.2) th/mm3 WBC Differential Differential Comment Sodium (136-145) meq/L Potassium (3.5-5.1) meq/L Chloride (98-107) meq/L Carbon Dioxide (21.0-32.0) meq/L Anion Gap (5-15) meq/L BUN (7-18) mg/dL Creatinine (0.50-1.00) mg/dL Estimated GFR (>89) mL/min POC Glucose 335 H (68-110) mg/dl Random Glucose (74-106) mg/dL Hemoglobin A1c (4.3-6.0) % Calcium (8.5-10.1) mg/dL Total Bilirubin (0.2-1.0) mg/dL AST (15-37) U/L ALT (10-53) U/L Alkaline Phosphatase (45-117) U/L Total Protein (6.4-8.2) g/dL Albumin (3.4-5.0) g/dL Triglycerides (42-150) mg/dL Cholesterol (120-200) mg/dL LDL Cholesterol, Calc (0-99) mg/dL HDL Cholesterol (40.0-60.0) mg/dL Cholesterol/HDL Ratio Ratio TSH (0.358-3.740) uIU/mL Urine Opiates Screen (Neg) Ur Barbiturates Screen (Neg) Ur Amphetamines Screen (Neg) U Benzodiazepines Scrn (Neg) Urine Cocaine Screen (Neg) U Cannabinoids Screen (Neg) Serum Alcohol (0-5) mg/dL Discharge Plan Discharge Disposition Patient Disposition: 30 Still Patient Discharge Details Diagnosis: Diabetes, Dentalgia Physicians Team ED Provider: Shamir Padron ED Midlevel Provider: Faith Ulloa Primary Care Provider: Primary Care Jewell Reyes Attending Provider: Daniel Brooke Other Providers: Z[facility] ; Jonnathan Potts Discharge Interventions Interventions: ED Discharge Assessment Last Done: 07/23/18 14:33 Vital Signs Last Done: 07/23/18 08:36 Status ED Status: Left Department Discharge Information Discharge Date/Time: 07/23/18 14:33
[2018-07-23] MEDS ORDERED: Aluminum/Magnesium/Simethacone Susp 30 ML UDC PO PRN (12:41)
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
[2018-07-23] MEDS: Acetaminophen 325 MG Tablet PO PRN (14:24)
[2018-07-23] MEDS ORDERED: Dextrose 50% in Water 50 ML Vial IV.PUSH PRN (15:38)
[2018-07-23] MEDS: Insulin NovoLOG Aspart Correctional Sugar Inj SQ SCH (16:28)
[2018-07-23] MEDS: Ibuprofen 600 MG Tablet PO PRN (16:59)
[2018-07-23] MEDS ORDERED: Insulin NovoLOG Aspart Correctional Sugar Inj SQ SCH (17:00)
--- NOTE | 2018-07-23 20:16 | P.CON ---
History of Present Illness Service: Hospitalist Consult date: 07/23/18 Reason for Consult: New onset diabetes Primary Care Provider: No Primary Care Physician History of Present Illness: Ms. Wade is a 57 year old female with a history of hypothyroidism who was admitted to psychiatry unit due to suicidal ideations. Patient is homeless. She denies having a diagnosis of diabetes. However, during this admission, her blood glucose has been elevated and a new onset of diabetes is diagnosed. Hospitalist service is consulted with regards to this new diagnosis. Patient denies any chest pain, shortness of breath, cough, abdominal pain, fever, chills. No changes in bowel or bladder habits. No blurry vision. Review of Systems All other systems reviewed negative except as stated in HPI PMFSH - History History Provided By: Patient - Medical History Medical History: Medical History (Last Reviewed 07/23/18 @ 12:51 by Jamil Gibbs MD) Hypothyroidism ADHD Bipolar 1 disorder - Surgical History Surgical History: Surgical History (Last Reviewed 07/23/18 @ 12:51 by Jamil Gibbs MD) H/O section - Tobacco History Second Hand Smoke Exposure: Yes Tobacco Use In Past 30 Days: Yes Smoking Status: Heavy tobacco smoker Tobacco Type: Cigarettes - Alcohol History How Often Do You Have a Drink Containing Alcohol: Never - Substance Use History Substance History: No History of Abuse - Travel History Recent Travel in the [place] Within the Last 8 Weeks: No Recent Travel Out of the Country Within the Last 8 Weeks: No - Immunization History Tetanus Immunization: Unsure Hx Influenza Vaccine This Season: No Medications and Allergies Active Medications: Active Medications Acetaminophen (Tylenol) 650 mg PO Q4H PRN PRN Reason: Pain 1-5 or Temp >101F Last Admin: 07/23/18 14:24 Dose: 650 mg Al Hydrox/Mg Hydrox/Simethicone (Mag-Al Plus Susp Liq) 30 ml PO Q6H PRN PRN Reason: DYSPEPSIA Al Hydroxide/Mg Hydroxide (Milk Of Magnesia Liq) 30 ml PO Q12H PRN PRN Reason: Mild Constipation Dextrose (D50w Vial) 50 ml IV.PUSH UNSCH PRN PRN Reason: PER HYPOGLYCEMIA PROTOCOL Diphenhydramine HCl (Benadryl) 50 mg PO HS PRN PRN Reason: INSOMNIA Fluoxetine HCl (Prozac) 10 mg PO DAILY KEITH Glucagon (Glucagon Inj) 1 mg OTHER PRN PRN PRN Reason: for Hypoglycemia Protocol Hydroxyzine HCl (Atarax) 50 mg PO Q6H PRN PRN Reason: ANXIETY Ibuprofen (Motrin) 600 mg PO Q8H PRN PRN Reason: PAIN SCALE 6 TO 10 Last Admin: 07/23/18 16:59 Dose: 600 mg Insulin Aspart (Novolog Insulin Correctional Sugar Inj) 0 unit SQ ACHS KEITH; Protocol Last Admin: 07/23/18 16:28 Dose: 10 unit Insulin Detemir (Levemir Inj) 10 unit SQ HS [facility] Levothyroxine Sodium (Synthroid) 88 mcg PO DAILY@0600 KEITH Metformin HCl (Glucophage) 500 mg PO BIDPC [facility] Last Admin: 07/23/18 17:04 Dose: Not Given Allergies Allergy/AdvReac Type Severity Reaction Status Date / Time codeine AdvReac Intermediate NAUSEA Verified 07/22/18 21:32 Home Medications Medication Instructions Recorded Confirmed Type levothyroxine 88 mcg PO DAILY 07/22/18 07/22/18 History Physical Exam Vital signs: Vital Signs 07/22/18 21:30 07/22/18 23:31 07/23/18 05:20 Temperature 98 F Pulse Rate 80 61 Respiratory Rate 18 18 16 Blood Pressure 110/60 91/57 L Pulse Oximetry 100 97 07/23/18 08:36 07/23/18 14:44 Temperature 97.6 F 97.4 F L Pulse Rate 69 81 Respiratory Rate 16 18 Blood Pressure 101/64 98/67 L Pulse Oximetry 96 98 Intake & Output 07/23/18 07/23/18 07/24/18 06:59 18:59 06:59 Weight 80 kg Other: Weight On Admission 80 kg Narrative: GENERAL: This is a well-nourished, well-developed patient, in no apparent distress. SKIN: No rashes, ecchymoses or lesions. Warm and dry. HEAD: Atraumatic. Normocephalic. No temporal or scalp tenderness. EYES: Pupils equal round and reactive. No injection or drainage. ENT: Nose without bleeding, purulent drainage or septal hematoma. Airway patent. NECK: Trachea midline. No lymphadenopathy. Supple, nontender, no meningeal signs. CARDIOVASCULAR: Regular rate and rhythm without murmurs, gallops, or rubs. No JVD. RESPIRATORY: Clear to auscultation. Breath sounds equal bilaterally. No wheezes , rales, or rhonchi. GASTROINTESTINAL: Abdomen soft, non-tender, nondistended. No guarding. MUSCULOSKELETAL: Extremities without clubbing, cyanosis, or edema. NEUROLOGICAL: Awake and alert. Cranial nerves II through XII intact. No focal neurological deficits. Normal speech. Assessment and Plan - Plan Ms. Wade is a pleasant 57 year old female who was admitted to psychiatry unit due to new diagnosis of diabetes mellitus. Suicidal ideations - management per psychiatry Diabetes mellitus -Blood glucose > 300. -Will check HbA1c and lipid profile -Start medium scale corrective insulin regimen. Start Levemir 10 units QHS. -Titrate as needed. -Post discharge, it would be difficult to provide insulin as patient is homeless -We could consider Metformin and glimepiride combination. -Patient's home med includes metformin. Probably DM is not a new diagnosis -Patient should follow up with community clinic and will likely need eye exam as well but not urgent. Hypothyroidism - Continue Levothyroxine 88mcg Qday. Full code. Ambulation. Thank you for the consult. We will continue to follow this patient with you.
[2018-07-24] MEDS: Insulin Detemir Inj 1,000 UNIT/10 ML Vial SQ SCH ×2 (01:01→22:25)
[2018-07-24] MEDS: Insulin NovoLOG Aspart Correctional Sugar Inj SQ SCH ×5 (01:02→22:28)
[2018-07-24] MEDS: Ibuprofen 600 MG Tablet PO PRN ×5 (04:23→22:27)
[2018-07-24 08:13] LABS: Chol/HDL Ratio 3.31 Ratio; HDL Cholesterol 52.5 mg/dL (40.0-60.0)
[2018-07-24] MEDS: Acetaminophen 325 MG Tablet PO PRN (09:18)
[2018-07-24] MEDS: FLUoxetine 10 MG Capsule PO SCH (12:08)
[2018-07-24 12:14] LABS: Hemoglobin A1c 15.9 % (4.3-6.0)
--- NOTE | 2018-07-24 12:31 | P.PNPSY ---
Subjective Remarks: Reviewed electronic medical records and discussed case with staff. Follow-up was conducted in the patient's room with SRINIVASA Jones. Patient is depressed . She states that she is homeless and does not have a place to go. I provided her with a list of places to call. She is eating and sleeping well. She feels that her medications are working. Denies SI/HI. Review of Systems All other systems reviewed negative except as stated in HPI Mental Status Examination Appearance: Appropriate Consciousness: Alert Orientation: x4 Motor Activity: Other (Patient laying in bed) Speech: Unremarkable Language: Adequate Fund of Knowledge: Adequate Attention and Concentration: Adequate Memory: Unremarkable Mood: Sad Affect: Flat Thought Process & Associations: Intact Thought Content: Appropriate Hallucination Type: None Delusion Type: None Suicidal Ideation: No Suicidal Plan: No Suicidal Intention: No Homicidal Ideation: No Homicidal Plan: No Homicidal Intention: No Insight: Poor Judgment: Poor Assessment and Plan - Assessment (1) Adjustment disorder with depressed mood Code(s): F43.21 - Adjustment disorder with depressed mood Status: Acute - Plan Plan: Estimated LOS: [4-5] days Continue current treatment plan. Psychiatrist will see her on Wednesday. Justification for Continued Inpatient Stay: Moving patient to a less restrictive environment may result in the patient's decompensation. Request Healthcare Surrogate/Guardian Advocate?: No
--- NOTE | 2018-07-24 14:26 | P.DIET ---
Nutritional Evaluation Type of nutrition evaluation: initial Nutrition screening: Weight Loss > 10 lbs Screening comments: pt reports a 35-lb wt loss over the last 3-months Subjective Oral Diet Tolerance Assessment Indicates: Poor dentition Subjective Comments: H&P w/pt has dental pain; missing and broken teeth. Pt recently became homeless. Objective - Diagnosis Adjustment DO w/Depressed Mood - Objective Sweeny body weight: 52.3 kg % IBW: 153 Body Weight Used for Calculations: IBW (52.3kg) Energy Needs - Lower Range (kCal/kg): 28 Energy Needs - Upper Range (kCal/kg): 33 Lower Limit kCal/kg (kCals): 1,464 Upper Limit kCal/kg (kCals): 1,726 Lower Limit Protein Factor (Grams per Kg): 1.3 Upper Limit Protein Factor (Grams per Kg): 1.5 Lower Protein Needs (Protein): 68 Upper Protein Needs (Protein): 78 Dietitian Reviewed in Medical Record: Current diet, Curent medications, Intake & Output, Labs, Medical history Diet Order: [id number] Oral Diet Intake Amount: Excellent 90%+ Objective Comments: PMH Includes: ADHD, Bipolar 1 DO, hypothyroidism Labs Include: A1C 15.9, Admission Glucose 603; POC Glucose 313, 325 Meds Include: Prozac, Atarax, Levemir, Novolog, Glucophage, Synthroid Assessment Assessment: Pt is at nutritional risk r/t recent unintentional wt loss. Adequate po intake 50% or greater for meals here. Pt w/New Onset Diabetes. Please Consult for Nutrition Education for Diabetes as appropriate. Recommendations: 1. Pt w/Adequate po intake 50% or greater for meals here 2. Please Consult for Nutrition Education for Diabetes as appropriate
[2018-07-24] MEDS: Levothyroxine 88 MCG Tablet PO SCH (15:40)
--- NOTE | 2018-07-24 17:11 | P.PNIM ---
Subjective Interval history: Patient was evaluated at bedside and states that she feels fine. She has no symptoms from her elevated sugars which remain in the high 200s-300 range. She is quick to point out that she has a infection in her right cheek from the right tooth abscess. This was previously treated as an outpatient but has recurred. Physical Exam Vital signs: Vital Signs 07/24/18 06:02 07/24/18 08:43 Temperature 97.3 F L Pulse Rate 67 Respiratory Rate 18 20 Blood Pressure 123/73 Pulse Oximetry 95 Intake & Output 07/23/18 07/24/18 07/24/18 18:59 06:59 18:59 Weight 80 kg Other: Weight On Admission 80 kg Narrative: GENERAL: AAOx3, no acute distress SKIN: Warm and dry. No rashes HEAD: Atruamtic, normocephalic. EYES: No scleral icterus. No injection or drainage. ENT: Poor dentition, multiple teeth missing, posterior upper molar is fractured with puffy gums surrounding and some edema of right cheek NECK: Supple, trachea midline. No JVD or lymphadenopathy. Normal thyroid. CARDIOVASCULAR: Regular rate and rhythm. No murmurs, gallops, or rubs. RESPIRATORY: Breath sounds clear equal bilaterally. No crackles or wheezes. No accessory muscle use. GASTROINTESTINAL: Abdomen soft, non-tender, nondistended, normal active bowel sounds MUSCULOSKELETAL: No cyanosis, or edema. NEURO: CN II-XII grossly intact, no focal deficits, no slurring of speech Results - Labs CBC & Chem 7: 07/22/18 22:00 07/22/18 22:00 Laboratory Results - last 24 hr 07/24/18 07/24/18 07/24/18 06:16 06:51 06:51 POC Glucose 313 H Hemoglobin A1c 15.9 H Triglycerides 115 Cholesterol 174 LDL Cholesterol, Calc 99 HDL Cholesterol 52.5 Cholesterol/HDL Ratio 3.31 07/24/18 07/24/18 11:10 16:11 POC Glucose 325 H 279 H Hemoglobin A1c Triglycerides Cholesterol LDL Cholesterol, Calc HDL Cholesterol Cholesterol/HDL Ratio Assessment and Plan - Plan Type 2 diabetes with hyperglycemia Blood glucose greater than 300 Patient started yesterday on medium sliding scale insulin coverage, started on Levemir 10 units nightly Part of hyperglycemia may be driven by tooth abscess (see below) Continue metformin Tooth abscess Patient was previously treated for this but the abscess has recurred Possibly a trigger for her otherwise unexplained hyperglycemia Begin on Keflex twice daily, continue Motrin Suicidal ideations management per psychiatry Hypothyroidism Continue home dose of levothyroxine 88 mcg daily
[2018-07-25] MEDS: Levothyroxine 88 MCG Tablet PO SCH (05:45)
[2018-07-25] MEDS: Ibuprofen 600 MG Tablet PO PRN ×3 (05:46→23:15)
[2018-07-25] MEDS: Insulin NovoLOG Aspart Correctional Sugar Inj SQ SCH ×4 (07:26→20:20)
[2018-07-25] MEDS: FLUoxetine 10 MG Capsule PO SCH (08:30)
--- NOTE | 2018-07-25 12:34 | P.PNPSY ---
Subjective Remarks: Patient seen and examined with nurse. Chart reviewed. Case discussed with nursing staff. On my examination today, the patient tells me "I do not want to live anymore because I am homeless." The patient says that she had been residing in a house but could no longer afford this and so was then staying in her car. When she could no longer afford tags for her car she was forced to stay on the street. Mood remains depressed. Denies audiovisual hallucinations. No evidence of psychotic material otherwise. Patient denies a history of psychiatric illness. Denies a history of suicide attempts. Possibly some sort of family history in her father of mental illness. She does endorse a history of cocaine use in the past. Denies any side effects from medications. Complains of some constipation, still passing flatus. Requesting a laxative. No other acute physical complaints, although the patient is also being treated for dental abscess, hypothyroidism and new diagnosis of diabetes. Vital Signs Temp Pulse Resp BP Pulse Ox 07/25/18 06:02 97.4 F L 65 16 89/55 L 95 07/24/18 22:00 18 07/24/18 17:29 98.5 F 88 18 113/68 97 Laboratory Tests 07/22/18 07/22/18 07/22/18 22:00 22:00 22:00 WBC 11.2 H Hgb 15.5 H Plt Count 358 Sodium 133 L Potassium 4.0 Chloride 94 L Carbon Dioxide 26.4 BUN 18 Creatinine 1.13 H Estimated GFR 50 L POC Glucose Hemoglobin A1c AST 114 H ALT 206 H Alkaline Phosphatase 117 TSH 23.000 H Urine Opiates Screen Neg Ur Barbiturates Screen Neg Ur Amphetamines Screen Neg U Benzodiazepines Scrn Neg Urine Cocaine Screen Neg U Cannabinoids Screen Neg Serum Alcohol Less than 3 07/24/18 07/25/18 06:51 11:28 WBC Hgb Plt Count Sodium Potassium Chloride Carbon Dioxide BUN Creatinine Estimated GFR POC Glucose 335 H Hemoglobin A1c 15.9 H AST ALT Alkaline Phosphatase TSH Urine Opiates Screen Ur Barbiturates Screen Ur Amphetamines Screen U Benzodiazepines Scrn Urine Cocaine Screen U Cannabinoids Screen Serum Alcohol Labs reviewed. Review of Systems All other systems reviewed negative except as stated in HPI Mental Status Examination Appearance: Appropriate Consciousness: Alert Orientation: x4 Motor Activity: Other (No motor abnormalities noted) Speech: Unremarkable Language: Adequate Fund of Knowledge: Adequate Attention and Concentration: Adequate Memory: Unremarkable Mood: Sad Affect: Blunt Thought Process & Associations: Intact, Logical, Linear Thought Content: Appropriate Hallucination Type: None Delusion Type: None Suicidal Ideation: Yes (Vague) Suicidal Plan: No Suicidal Intention: No (No reported urge to hurt self on inpatient unit) Homicidal Ideation: No Homicidal Plan: No Homicidal Intention: No Insight: Fair Judgment: Impulsive Assessment and Plan - Assessment (1) Adjustment disorder with depressed mood Code(s): F43.21 - Adjustment disorder with depressed mood Status: Acute - Plan Plan: Continue Prozac as ordered. Could consider further titration of this agent to target dysphoria. I will add Colace for complaints of constipation. Hospitalist input noted and appreciated. Check CBC and CMP to follow-up on laboratory abnormalities. Consult diabetes nurse educator as recommended by dietitian. Continue to monitor on the inpatient unit. Continue other medications and care as ordered. Justification for Continued Inpatient Stay: Monitoring for impairment in safety. Risk for decompensation in less restrictive environment. Discharge Planning: Pending psychiatric stabilization. Request Healthcare Surrogate/Guardian Advocate?: No
--- NOTE | 2018-07-25 15:19 | P.PN ---
Subjective Interval history: Follow-up visit uncontrolled diabetes, dental abscess. Patient seen and examined today. Reports that she is doing well. States the swelling of her right side still continues. States her sugar still is uncontrolled. Otherwise , denies SOB/ dyspnea. Denies chest pain, palpitations, headaches, dizziness. Denies fevers, chills, n/v/d. Denies dysuria. Complaints of constipation Physical Exam Vital signs: Vital Signs 07/24/18 17:29 07/24/18 22:00 07/25/18 06:02 Temperature 98.5 F 97.4 F L Pulse Rate 88 65 Respiratory Rate 18 18 16 Blood Pressure 113/68 89/55 L Pulse Oximetry 97 95 Narrative: GENERAL: AAOx3, no acute distress SKIN: Warm and dry. No rashes HEAD: Atraumatic, normocephalic. EYES: No scleral icterus. No injection or drainage. ENT: Poor dentition, multiple teeth missing, posterior upper molar is fractured with puffy gums surrounding and some edema of right cheek NECK: Supple, trachea midline. No JVD or lymphadenopathy. Normal thyroid. CARDIOVASCULAR: Regular rate and rhythm. No murmurs, gallops, or rubs. RESPIRATORY: Breath sounds clear equal bilaterally. No crackles or wheezes. No accessory muscle use. GASTROINTESTINAL: Abdomen soft, non-tender, nondistended, normal active bowel sounds MUSCULOSKELETAL: No cyanosis, or edema. NEURO: CN II-XII grossly intact, no focal deficits, no slurring of speech Results - Labs CBC & Chem 7: 07/22/18 22:00 07/22/18 22:00 Laboratory Results - last 24 hr 07/24/18 07/24/18 07/25/18 16:11 20:35 05:42 POC Glucose 279 H 268 H 350 H 07/25/18 07/25/18 07:14 11:28 POC Glucose 336 H 335 H Assessment and Plan - Plan 57 year old female with a history of hypothyroidism who was admitted to psychiatry unit due to suicidal ideations. Patient is homeless. She denies having a diagnosis of diabetes. Suicidal ideations - management per psychiatry Diabetes mellitus, newly diagnosed -Blood glucose > 300. -Hemoglobin A1c 15.9 -Medium scale corrective insulin regimen. Increase Levemir Levemir 10 units twice daily. Give 10 units now -Titrate as needed. -Post discharge, it would be difficult to provide insulin as patient is homeless -We could consider Metformin and glimepiride combination. -Patient home medication will include Metformin if kidney function improved. If not, consider placing patient on 70/30 insulin BID for cost, probably DM is not a new diagnosis. 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 -Patient should follow up with community clinic and will likely need eye exam as well but not urgent. Tooth abscess -Patient was previously treated for this but the abscess has recurred -Keflex twice daily, continue Motrin short term -Enc PO fluids Hypothyroidism - Continue Levothyroxine 88mcg Qday. Full code. Ambulation. Code Status: Full code Discussed Condition With: Patient, nursing Discharge Planning: DC disposition by primary team
[2018-07-25] MEDS ORDERED: Insulin Detemir Inj 1,000 UNIT/10 ML Vial SQ ONE (16:00)
[2018-07-25] MEDS: Insulin Detemir Inj 1,000 UNIT/10 ML Vial SQ SCH (20:20)
[2018-07-25] MEDS: Docusate Sodium 100 MG Capsule PO SCH (20:39)
[2018-07-25] MEDS: Acetaminophen 325 MG Tablet PO PRN (22:16)
[2018-07-26] MEDS: Levothyroxine 88 MCG Tablet PO SCH (06:35)
[2018-07-26 07:24] LABS: Baso # (Auto) 0.1 th/mm3 (0.0-0.2); Baso % (Auto) 0.8 % (0.0-2.0); Eos # (Auto) 0.3 th/mm3 (0.0-0.4); Eos % (Auto) 3.5 % (0.0-4.0); Hematocrit 41.8 % (35.0-46.0); Hemoglobin 14.7 gm/dL (11.6-15.3); Lymph # (Auto) 3.7 th/mm3 (1.0-4.8); Lymph % (Auto) 45.8 % (9.0-44.0); Mean Corpuscular Hemoglobin 30.6 pg (27.0-34.0); Mean Corpuscular Volume 87.4 fL (80.0-100.0); Mono # (Auto) 0.6 th/mm3 (0.0-0.9); Mono % (Auto) 7.5 % (0.0-8.0); Neut # (Auto) 3.4 th/mm3 (1.8-7.7); Neut % (Auto) 42.4 % (16.0-70.0); Platelet Count 305 th/mm3 (150-450); Red Blood Count 4.79 mil/mm3 (4.00-5.30); Red Cell Distribution Width 12.8 % (11.6-17.2)
[2018-07-26 07:45] LABS: Alanine Aminotransferase 173 U/L (10-53); Albumin 2.9 g/dL (3.4-5.0); Anion Gap 11 meq/L (5-15); Aspartate Aminotransferase 109 U/L (15-37); Blood Urea Nitrogen 15 mg/dL (7-18); Calcium 8.7 mg/dL (8.5-10.1); Carbon Dioxide 31.5 meq/L (21.0-32.0); Chloride 100 meq/L (98-107); Glomerular Filtration Rate Greater Than 89 mL/min (>89); Glucose,Random 105 mg/dL (74-106); Potassium 3.8 meq/L (3.5-5.1); Sodium 142 meq/L (136-145)
[2018-07-26 07:47] LABS: Alkaline Phosphatase 81 U/L (45-117); Total Protein 6.3 g/dL (6.4-8.2)
[2018-07-26] MEDS: Insulin NovoLOG Aspart Correctional Sugar Inj SQ SCH ×4 (08:00→20:59)
[2018-07-26] MEDS: FLUoxetine 10 MG Capsule PO SCH (08:22)
[2018-07-26] MEDS: Ibuprofen 600 MG Tablet PO PRN ×2 (08:23→22:13)
[2018-07-26] MEDS: Insulin Detemir Inj 1,000 UNIT/10 ML Vial SQ SCH ×2 (08:24→17:34)
[2018-07-26] MEDS: Docusate Sodium 100 MG Capsule PO SCH ×2 (10:05→20:57)
--- NOTE | 2018-07-26 15:50 | P.PNPSY ---
Subjective Remarks: Reviewed electronic medical records and discussed case with staff. Follow-up was conducted in patient's room she was found lying on the bed. Her nurse reports that she has been sneaking food which is not helping with her blood glucose levels. She is compliant with meds and seclusive. Patient states that she is "depressed as always". Initially, she claims that she sleeps all day and night. Later she states that she needs to the nursing staff to give her her Benadryl so she can sleep tonight. When asked to clarify she says she been sleeping all day and night she responds, "I have been having trouble sleeping at night". When asked if this could possibly be because she sleeps all day she then again changes her story stating, "what I really just lay here". There has been some minor downward trends in her labs however, her lack of desire to comply with treatment plans will likely prevent a drastic improvement. Mental Status Examination Appearance: Appropriate Consciousness: Alert Orientation: x4 Motor Activity: Other (No motor abnormalities noted) Speech: Unremarkable Language: Adequate Fund of Knowledge: Adequate Attention and Concentration: Adequate Memory: Unremarkable Mood: Sad Affect: Blunt Thought Process & Associations: Intact, Logical, Linear Thought Content: Appropriate Hallucination Type: None Delusion Type: None Suicidal Ideation: Yes (Vague) Suicidal Plan: No Suicidal Intention: No (No reported urge to hurt self on inpatient unit) Homicidal Ideation: No Homicidal Plan: No Homicidal Intention: No Insight: Fair Judgment: Impulsive Assessment and Plan - Assessment (1) Adjustment disorder with depressed mood Code(s): F43.21 - Adjustment disorder with depressed mood Status: Acute - Plan Plan: Patient will be reevaluated tomorrow by the attending psychiatrist. Continue with current treatment plan. Justification for Continued Inpatient Stay: Moving this patient to a less restrictive environment would likely result in decompensation. Request Healthcare Surrogate/Guardian Advocate?: No
--- NOTE | 2018-07-26 16:30 | P.PN ---
Subjective Interval history: Follow-up visit uncontrolled diabetes, dental abscess. Patient seen and examined today in room, RN at bedside. Patient states she is doing fine, she has already spoken to another nurse practitioner. Explained that she spoke to construction administrative assistant. We discussed again her diabetes, patient states that she may not follow through with taking oral hypoglycemic agents. Wants help in finding a place to live. Blood sugars remain elevated 280s-300s. Dietary compliance is emphasized, patient has been taking food from other patients' trays. States that she is not eating enough. Occasional dental pain, no trouble swallowing. No fever, no chills. No chest pain, shortness of breath. Physical Exam Vital signs: Vital Signs 07/25/18 17:40 07/26/18 06:00 Temperature 98.1 F 97.7 F Pulse Rate 113 H 59 L Respiratory Rate 17 18 Blood Pressure 118/75 102/54 L Pulse Oximetry 92 L 94 L Narrative: GENERAL: AAOx3, no acute distress SKIN: Warm and dry. No rashes HEAD: Atraumatic, normocephalic. EYES: No scleral icterus. No injection or drainage. ENT: Poor dentition, multiple teeth missing, posterior upper molar is fractured with puffy gums surrounding and some edema of right cheek NECK: Supple, trachea midline. No JVD or lymphadenopathy. Normal thyroid. CARDIOVASCULAR: Regular rate and rhythm. No murmurs, gallops, or rubs. RESPIRATORY: Breath sounds clear equal bilaterally. No crackles or wheezes. No accessory muscle use. GASTROINTESTINAL: Abdomen soft, non-tender, nondistended, normal active bowel sounds MUSCULOSKELETAL: No cyanosis, or edema. NEURO: CN II-XII grossly intact, no focal deficits, no slurring of speech Results - Labs CBC & Chem 7: 07/26/18 06:55 07/26/18 06:55 Laboratory Results - last 24 hr 07/25/18 07/26/18 07/26/18 20:12 06:55 06:55 WBC 8.0 RBC 4.79 Hgb 14.7 Hct 41.8 MCV 87.4 MCH 30.6 MCHC 35.0 RDW 12.8 Plt Count 305 MPV 7.0 Neut % (Auto) 42.4 Lymph % (Auto) 45.8 H [place] % (Auto) 7.5 Eos % (Auto) 3.5 Baso % (Auto) 0.8 Neut # (Auto) 3.4 Lymph # (Auto) 3.7 [place] # (Auto) 0.6 Eos # (Auto) 0.3 Baso # (Auto) 0.1 WBC Differential . Differential Comment Auto diff final Sodium 142 Potassium 3.8 Chloride 100 Carbon Dioxide 31.5 Anion Gap 11 BUN 15 Creatinine 0.67 Estimated GFR Greater than 89 POC Glucose 405 H Random Glucose 105 Calcium 8.7 Total Bilirubin 0.3 AST 109 H ALT 173 H Alkaline Phosphatase 81 Total Protein 6.3 L D Albumin 2.9 L 07/26/18 07/26/18 07:20 11:11 WBC RBC Hgb Hct MCV MCH MCHC RDW Plt Count MPV Neut % (Auto) Lymph % (Auto) [place] % (Auto) Eos % (Auto) Baso % (Auto) Neut # (Auto) Lymph # (Auto) [place] # (Auto) Eos # (Auto) Baso # (Auto) WBC Differential Differential Comment Sodium Potassium Chloride Carbon Dioxide Anion Gap BUN Creatinine Estimated GFR POC Glucose 110 330 H Random Glucose Calcium Total Bilirubin AST ALT Alkaline Phosphatase Total Protein Albumin Assessment and Plan - Plan 57 year old female with a history of hypothyroidism who was admitted to psychiatry unit due to suicidal ideations. Patient is homeless. She denies having a diagnosis of diabetes. Suicidal ideations - management per psychiatry Diabetes mellitus, newly diagnosed -Blood glucose > 300. -Hemoglobin A1c 15.9 -Medium scale corrective insulin regimen. Blood glucose remain elevated, will Increase Levemir Levemir 12 units twice daily. -Titrate as needed. -Post discharge, it would be difficult to provide insulin as patient is homeless -We could consider Metformin and glimepiride combination. -Patient home medication will include Metformin if kidney function improved. If not, consider placing patient on 70/30 insulin BID for cost, probably DM is not a new diagnosis. -Patient should follow up with community clinic and will likely need eye exam as well but not urgent. -Appreciate staff educator input, notes reviewed. Patient initially reluctant to education however she was able to do adequate return demonstration. Was given a meter. As noted, it will be difficult for patient to use insulin as outpatient as she is homeless and will have difficulty storing medication. We discussed the possibility of discharging her on oral hypoglycemics however she verbalized that she does not care and may not follow through with taking them. Tooth abscess -Patient was previously treated for this but the abscess has recurred -Keflex twice daily, continue Motrin short term -Enc PO fluids Hypothyroidism - Continue Levothyroxine 88mcg Qday. Full code. Ambulation. 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
[2018-07-27] MEDS: Levothyroxine 88 MCG Tablet PO SCH (06:27)
[2018-07-27] MEDS: Ibuprofen 600 MG Tablet PO PRN ×3 (06:27→21:39)
[2018-07-27] MEDS: Insulin Detemir Inj 1,000 UNIT/10 ML Vial SQ SCH ×2 (06:28→17:14)
[2018-07-27] MEDS: Insulin NovoLOG Aspart Correctional Sugar Inj SQ SCH ×4 (08:54→20:53)
[2018-07-27] MEDS: Docusate Sodium 100 MG Capsule PO SCH ×2 (08:54→20:49)
[2018-07-27] MEDS: FLUoxetine 10 MG Capsule PO SCH (08:54)
--- NOTE | 2018-07-27 12:10 | P.PNPSY ---
Subjective Remarks: Patient seen and examined with nurse. Chart reviewed. Case discussed with nursing staff. Case discussed with counselor. On my examination today, the patient remains dysphoric and says that she is feeling "depressed, like usual." She complains of low energy. No SI or HI. She is requesting to see a lining caser as she is concerned about her housing situation after discharge. No hallucinations. No side effects from medications. No physical complaints. I have emphasized importance of close attention to antihyperglycemic regimen to try to prevent the sequelae of hyperglycemia. Vital Signs Pulse Resp BP Pulse Ox 07/27/18 06:00 62 16 105/58 L 94 L 07/26/18 19:28 111/68 Laboratory Results - last 24 hr 07/26/18 07/26/18 07/27/18 16:28 19:49 06:09 POC Glucose 281 H 180 H 290 H 07/27/18 11:28 POC Glucose 290 H Labs reviewed. Review of Systems All other systems reviewed negative except as stated in HPI Mental Status Examination Appearance: Appropriate Consciousness: Alert Orientation: x4 Motor Activity: Other (No abnormal motor movements noted) Speech: Unremarkable Language: Adequate Fund of Knowledge: Adequate Attention and Concentration: Adequate Memory: Unremarkable Mood: Sad Affect: Blunt Thought Process & Associations: Intact, Logical, Linear Thought Content: Appropriate Hallucination Type: None Delusion Type: None Suicidal Ideation: No Homicidal Ideation: No Insight: Fair Judgment: Impulsive Assessment and Plan - Assessment (1) Adjustment disorder with depressed mood Code(s): F43.21 - Adjustment disorder with depressed mood Status: Acute - Plan Plan: Titrate Prozac to 20 mg daily to target dysphoria. Continue to monitor on the inpatient unit. Continue other medications and care as ordered. Justification for Continued Inpatient Stay: Medication changes. Risk for decompensation in less restrictive environment. Discharge Planning: Anticipate discharge by the end of the week Request Healthcare Surrogate/Guardian Advocate?: No
--- NOTE | 2018-07-27 14:44 | P.PN ---
Subjective Interval history: Follow-up visit uncontrolled diabetes, dental abscess. Patient seen and examined today in room. Awakes to voice, oriented x 3. Feels poorly today, c/o dental pain. Eating okay, states she is trying to eat only what is been given. BGM 290s. No cp, no sob, no n/v/d. No fever, no chills. Physical Exam Vital signs: Vital Signs 07/26/18 19:28 07/27/18 06:00 Pulse Rate 62 Respiratory Rate 16 Blood Pressure 111/68 105/58 L Pulse Oximetry 94 L Narrative: GENERAL: AAOx3, no acute distress SKIN: Warm and dry. No rashes HEAD: Atraumatic, normocephalic. EYES: No scleral icterus. No injection or drainage. ENT: Poor dentition, multiple teeth missing, posterior upper molar is fractured with puffy gums surrounding and some edema of right cheek NECK: Supple, trachea midline. No JVD or lymphadenopathy. Normal thyroid. CARDIOVASCULAR: Regular rate and rhythm. No murmurs, gallops, or rubs. RESPIRATORY: Breath sounds clear equal bilaterally. No crackles or wheezes. No accessory muscle use. GASTROINTESTINAL: Abdomen soft, non-tender, nondistended, normal active bowel sounds MUSCULOSKELETAL: No cyanosis, or edema. NEURO: CN II-XII grossly intact, no focal deficits, no slurring of speech Results - Labs CBC & Chem 7: 07/26/18 06:55 07/26/18 06:55 Laboratory Results - last 24 hr 07/26/18 07/26/18 07/27/18 16:28 19:49 06:09 POC Glucose 281 H 180 H 290 H 07/27/18 11:28 POC Glucose 290 H Assessment and Plan - Plan 57 year old female with a history of hypothyroidism who was admitted to psychiatry unit due to suicidal ideations. Patient is homeless. She denies having a diagnosis of diabetes. Suicidal ideations - management per psychiatry Diabetes mellitus, newly diagnosed -Blood glucose > 300. -Hemoglobin A1c 15.9 -Medium scale corrective insulin regimen. Blood glucose remain elevated, will Increase Levemir Levemir 12 units twice daily. -Titrate as needed. -Post discharge, it would be difficult to provide insulin as patient is homeless -We could consider Metformin and glimepiride combination. -Patient home medication will include Metformin if kidney function improved. If not, consider placing patient on 70/30 insulin BID for cost, probably DM is not a new diagnosis. -Patient should follow up with community clinic and will likely need eye exam as well but not urgent. -Appreciate certified lactation educator input, notes reviewed. Patient initially reluctant to education however she was able to do adequate return demonstration. Was given a meter. As noted, it will be difficult for patient to use insulin as outpatient as she is homeless and will have difficulty storing medication. We discussed the possibility of discharging her on oral hypoglycemics however she verbalized that she does not care and may not follow through with taking them. CM looking for placement. Tooth abscess -Patient was previously treated for this but the abscess has recurred -Keflex twice daily, continue Motrin short term -Enc PO fluid -Inc. Ibuprofen to 600mg po q 6 prn. Creat stable. (short term 3 days max.) Hypothyroidism - Continue Levothyroxine 88mcg Qday. Full code. Ambulation. Will sign off for now. Reconsult if needed. Code Status: Full code Discussed Condition With: RN, pt. Discharge Planning: DC planning per primary care team
[2018-07-28] MEDS: Levothyroxine 88 MCG Tablet PO SCH (06:20)
[2018-07-28] MEDS: Insulin Detemir Inj 1,000 UNIT/10 ML Vial SQ SCH ×2 (06:20→17:41)
[2018-07-28] MEDS: Ibuprofen 600 MG Tablet PO PRN ×3 (06:37→22:03)
[2018-07-28] MEDS: Docusate Sodium 100 MG Capsule PO SCH ×3 (08:05→22:02)
[2018-07-28] MEDS: Insulin NovoLOG Aspart Correctional Sugar Inj SQ SCH ×7 (08:05→20:48)
[2018-07-28] MEDS: FLUoxetine 20 MG Capsule PO SCH (08:05)
--- NOTE | 2018-07-28 12:28 | P.PNPSY ---
Subjective Remarks: Patient seen and examined with nurse. Chart reviewed. Case discussed with nursing staff. Case discussed with counselor who reports that he tried to assist the patient with working toward some sort of placement, but it does not appear that patient has made the necessary telephone calls to help facilitate placement. On my examination today, the patient remains somewhat dysphoric. She endorses ongoing suicidal ideation "all the time" without specific plan. She continues to contract for safety on the inpatient unit. In context, malingering of psychiatric symptoms for chcf is strongly suspected. No psychotic material. She denies side effects from medications. No physical complaints. Vital Signs Temp Pulse Resp BP Pulse Ox 07/28/18 05:50 97.0 F L 64 16 90/53 L 94 L 07/27/18 17:13 98.2 F 72 18 88/60 L 97 Laboratory Results - last 24 hr 07/27/18 07/27/18 07/28/18 16:27 20:19 06:12 POC Glucose 406 H 286 H 145 H 07/28/18 11:14 POC Glucose 226 H Labs reviewed. Review of Systems All other systems reviewed negative except as stated in HPI Mental Status Examination Appearance: Appropriate Consciousness: Alert Orientation: x4 Motor Activity: Other (No motoric abnormalities noted) Speech: Unremarkable Language: Adequate Fund of Knowledge: Adequate Attention and Concentration: Adequate Memory: Unremarkable (Grossly intact on clinical exam) Mood: Sad Affect: Blunt Thought Process & Associations: Intact, Logical, Linear Thought Content: Appropriate Hallucination Type: None Delusion Type: None Suicidal Ideation: Yes Suicidal Plan: No Suicidal Intention: No (Contracts for safety on the inpatient unit) Homicidal Ideation: No Homicidal Plan: No Homicidal Intention: No Insight: Fair Judgment: Impulsive Assessment and Plan - Assessment (1) Adjustment disorder with depressed mood Code(s): F43.21 - Adjustment disorder with depressed mood Status: Acute - Plan Plan: Continue Prozac as ordered. As noted above, malingering for chcf is strongly suspected in the present case, although there may be some degree of underlying adjustment disorder to the patient's new homeless situation, and I do believe the adjustment disorder diagnosis is still appropriate. Continue to monitor on the inpatient unit. Continue other medications and care as ordered. Justification for Continued Inpatient Stay: Monitoring for impairment in safety, none noted. Discharge Planning: Hopefully, the patient will begin to work with the counselor towards some sort of placement. Case discussed with counselor. Request Healthcare Surrogate/Guardian Advocate?: No
--- NOTE | 2018-07-28 16:07 | P.PN ---
Subjective Interval history: Follow-up visit uncontrolled diabetes, dental abscess. Patient seen and examined today in day room. continues to say she is not feeling well, still with some oral pain. Ibuprofen working. Eating better, blood glucose coming down some. No N/V/D. No CP, no SOB. Per nursing, she continues to verbalize suicidal thoughts. She is homeless. Physical Exam Vital signs: Vital Signs 07/27/18 17:13 07/28/18 05:50 Temperature 98.2 F 97.0 F L Pulse Rate 72 64 Respiratory Rate 18 16 Blood Pressure 88/60 L 90/53 L Pulse Oximetry 97 94 L Intake & Output 07/27/18 07/28/18 07/28/18 18:59 06:59 18:59 Weight 81.9 kg Narrative: GENERAL: AAOx3, no acute distress SKIN: Warm and dry. No rashes HEAD: Atraumatic, normocephalic. EYES: No scleral icterus. No injection or drainage. ENT: Poor dentition, multiple teeth missing, posterior upper molar is fractured with puffy gums surrounding and some edema of right cheek NECK: Supple, trachea midline. No JVD or lymphadenopathy. Normal thyroid. CARDIOVASCULAR: Regular rate and rhythm. No murmurs, gallops, or rubs. RESPIRATORY: Breath sounds clear equal bilaterally. No crackles or wheezes. No accessory muscle use. GASTROINTESTINAL: Abdomen soft, non-tender, nondistended, normal active bowel sounds MUSCULOSKELETAL: No cyanosis, or edema. NEURO: CN II-XII grossly intact, no focal deficits, no slurring of speech Results - Labs CBC & Chem 7: 07/26/18 06:55 07/26/18 06:55 Laboratory Results - last 24 hr 07/27/18 07/27/18 07/28/18 16:27 20:19 06:12 POC Glucose 406 H 286 H 145 H 07/28/18 11:14 POC Glucose 226 H Assessment and Plan - Plan 57 year old female with a history of hypothyroidism who was admitted to psychiatry unit due to suicidal ideations. Patient is homeless. She denies having a diagnosis of diabetes. Suicidal ideations - management per psychiatry Diabetes mellitus, newly diagnosed -Blood glucose > 300. -Hemoglobin A1c 15.9 -Medium scale corrective insulin regimen. Blood glucose remain elevated, will Increase Levemir Levemir 12 units twice daily. -Titrate as needed. -Post discharge, it would be difficult to provide insulin as patient is homeless -We could consider Metformin and glimepiride combination. Pt. agreeable with PO now. -Patient home medication will include Metformin if kidney function improved. If not, consider placing patient on 70/30 insulin BID for cost, probably DM is not a new diagnosis. -Patient should follow up with community clinic and will likely need eye exam as well but not urgent. -Appreciate critical care educator input, notes reviewed. Patient initially reluctant to education however she was able to do adequate return demonstration. Was given a meter. As noted, it will be difficult for patient to use insulin as outpatient as she is homeless and will have difficulty storing medication. -BGM high during meals, will add premeal insulin 4 units. Tooth abscess -Patient was previously treated for this but the abscess has recurred -Keflex twice daily, continue Motrin short term -Enc PO fluid -Inc. Ibuprofen to 600mg po q 6 prn. Creat stable. (short term 3 days max.) Hypothyroidism - Continue Levothyroxine 88mcg Qday. Full code. Ambulation. Will sign off for now. Reconsult if needed. Code Status: Full code Discussed Condition With: RN, pt. Discharge Planning: DC planning per primary care team
[2018-07-29] MEDS: Insulin Detemir Inj 1,000 UNIT/10 ML Vial SQ SCH ×2 (06:51→17:45)
[2018-07-29] MEDS: Levothyroxine 88 MCG Tablet PO SCH (06:53)
[2018-07-29] MEDS: FLUoxetine 20 MG Capsule PO SCH (08:15)
[2018-07-29] MEDS: Docusate Sodium 100 MG Capsule PO SCH ×2 (08:15→21:14)
[2018-07-29] MEDS: Insulin NovoLOG Aspart Correctional Sugar Inj SQ SCH ×7 (08:26→21:32)
--- NOTE | 2018-07-29 11:52 | P.PNPSY ---
Subjective Remarks: Patient seen and examined with nurse. Chart reviewed. Case discussed with nursing staff. Patient told the nurse if she were discharged today, she would simply return immediately to the ED and get re-admitted. Case discussed in treatment team. On my exam, patient is laying in bed. She says she is depressed and complains of hypersomnia. She voices ongoing vague SI. In context her presentation is exceedingly manipulative, and her main question to me is how much longer she will be retained on the unit. She insists that she has called a few of the numbers for possible housing provided to her by the counselor, but per the nurse she is seldom out of bed. No side effects from medications. No physical complaints. Vital Signs Temp Pulse Resp BP Pulse Ox 07/29/18 06:00 97.6 F 61 18 97/61 L 95 07/28/18 20:00 18 07/28/18 18:00 97.4 F L 72 18 113/70 99 Intake and Output 07/28/18 07/29/18 07/29/18 22:59 06:59 14:59 Intake Total 240 / 240 Balance 240 / 240 Intake: Oral 240 / 240 Laboratory Results - last 24 hr 07/28/18 07/28/18 07/29/18 16:32 20:46 06:46 POC Glucose 241 H 255 H 181 H 07/29/18 07/29/18 07:42 11:19 POC Glucose 186 H 200 H Labs reviewed. Review of Systems All other systems reviewed negative except as stated in HPI Mental Status Examination Appearance: Appropriate Consciousness: Alert Orientation: x4 Motor Activity: Other (No abnormal motor movements noted) Speech: Unremarkable Language: Adequate Fund of Knowledge: Adequate Attention and Concentration: Adequate Memory: Unremarkable (Grossly intact on clinical exam) Mood: Sad Affect: Blunt (Remains blunted) Thought Process & Associations: Intact, Logical, Linear Thought Content: Appropriate Hallucination Type: None Delusion Type: None Suicidal Ideation: Yes Suicidal Plan: No Suicidal Intention: No (No reported urge to hurt self on inpatient unit) Homicidal Ideation: No Homicidal Plan: No Homicidal Intention: No Insight: Fair Judgment: Impulsive Assessment and Plan - Assessment (1) Adjustment disorder with depressed mood Code(s): F43.21 - Adjustment disorder with depressed mood Status: Acute (2) Malingering Code(s): Z76.5 - Malingerer [conscious simulation] Status: Suspected - Plan Plan: Malingering for intermediate is very strongly suspected at this point. Out of a great abundance of caution I will monitor the patient through the weekend. It is hoped that she will use this time to call more of the numbers provided to her by the counselor for possible housing, and I have entreated her to do so. I do believe it is likely if we were to discharge her today, she would manufacture a circumstance to get re-admitted, but I am not sure this will be much changed Wednesday if she cannot make arrangements for housing. Hospitalist input appreciated. Continue other medications and care as ordered. Justification for Continued Inpatient Stay: Monitoring for impairment in safety, none noted. Discharge Planning: Anticipate discharge Wednesday. Request Healthcare Surrogate/Guardian Advocate?: No
[2018-07-29] MEDS: Ibuprofen 600 MG Tablet PO PRN (23:05)
[2018-07-30] MEDS: Levothyroxine 88 MCG Tablet PO SCH (06:01)
[2018-07-30] MEDS: Insulin Detemir Inj 1,000 UNIT/10 ML Vial SQ SCH ×2 (06:01→17:53)
[2018-07-30] MEDS: Insulin NovoLOG Aspart Correctional Sugar Inj SQ SCH ×7 (08:25→22:59)
[2018-07-30] MEDS: FLUoxetine 20 MG Capsule PO SCH (08:26)
[2018-07-30] MEDS: Docusate Sodium 100 MG Capsule PO SCH ×2 (08:26→23:00)
[2018-07-30] MEDS: Ibuprofen 600 MG Tablet PO PRN (08:44)
--- NOTE | 2018-07-30 18:55 | P.PNPSY ---
Subjective Remarks: Reviewed electronic medical records and discussed case with staff. Follow-up was conducted in the patient's room with SRINIVASA Yousif present. Her nurse reports that earlier today when advised to not be discharged today the patient exclaimed , "woohoo" and a little dance in her room. Upon examination today the patient states she is not sleeping "so good". But that her appetite has been good she reports her mood as being "just depressed". Mental Status Examination Appearance: Appropriate Consciousness: Alert Orientation: x4 Motor Activity: Other (No abnormal motor movements noted) Speech: Unremarkable Language: Adequate Fund of Knowledge: Adequate Attention and Concentration: Adequate Memory: Unremarkable (Grossly intact on clinical exam) Mood: Sad Affect: Blunt (Remains blunted) Thought Process & Associations: Intact, Logical, Linear Thought Content: Appropriate Hallucination Type: None Delusion Type: None Suicidal Ideation: Yes Suicidal Plan: No Suicidal Intention: No (No reported urge to hurt self on inpatient unit) Homicidal Ideation: No Homicidal Plan: No Homicidal Intention: No Insight: Fair Judgment: Impulsive Assessment and Plan - Assessment (1) Adjustment disorder with depressed mood Code(s): F43.21 - Adjustment disorder with depressed mood Status: Acute - Plan Plan: Patient will be reevaluated Wednesday by the attending psychiatrist. Continue with current treatment plan. Justification for Continued Inpatient Stay: Moving this patient to a less restrictive environment would likely result in decompensation. Request Healthcare Surrogate/Guardian Advocate?: No
[2018-07-31] MEDS: Levothyroxine 88 MCG Tablet PO SCH (06:05)
[2018-07-31] MEDS: Insulin Detemir Inj 1,000 UNIT/10 ML Vial SQ SCH ×2 (06:06→17:55)
[2018-07-31] MEDS: Insulin NovoLOG Aspart Correctional Sugar Inj SQ SCH ×6 (08:09→17:05)
[2018-07-31] MEDS: FLUoxetine 20 MG Capsule PO SCH (08:09)
[2018-07-31] MEDS: Docusate Sodium 100 MG Capsule PO SCH ×2 (08:09→20:34)
--- NOTE | 2018-07-31 15:40 | P.PNPSY ---
Subjective Remarks: Reviewed electronic medical records and discussed case with staff. Follow-up was conducted in the patient's room with nurse present. Patient states that she is not sleeping and needs benadryl. She states that she has been dizzy but feels it is related to Prozac. She is asking for education on diabetes. Nurses states that patient is homeless and has been asking alot of questions regarding where she will go at the time of discharge. Denies any suicidal or homicidal ideations. Review of Systems All other systems reviewed negative except as stated in HPI Mental Status Examination Appearance: Appropriate Consciousness: Alert Orientation: x4 Motor Activity: Other (No abnormal motor movements noted) Speech: Unremarkable Language: Adequate Fund of Knowledge: Adequate Attention and Concentration: Adequate Memory: Unremarkable (Grossly intact on clinical exam) Mood: Sad Affect: Blunt (Remains blunted) Thought Process & Associations: Intact, Logical, Linear Thought Content: Appropriate Hallucination Type: None Delusion Type: None Suicidal Ideation: No Suicidal Plan: No Suicidal Intention: No Homicidal Ideation: No Homicidal Plan: No Homicidal Intention: No Insight: Fair Judgment: Impulsive Assessment and Plan - Assessment (1) Adjustment disorder with depressed mood Code(s): F43.21 - Adjustment disorder with depressed mood Status: Acute - Plan Plan: Patient will be reevaluated Wednesday by the attending psychiatrist. Continue with current treatment plan. Justification for Continued Inpatient Stay: Moving patient to a less restrictive environment may result in her decompensation. Request Healthcare Surrogate/Guardian Advocate?: No
[2018-07-31] MEDS: Acetaminophen 325 MG Tablet PO PRN (20:36)
[2018-08-01] MEDS: Insulin NovoLOG Aspart Correctional Sugar Inj SQ SCH ×3 (01:15→08:01)
[2018-08-01] MEDS: Levothyroxine 88 MCG Tablet PO SCH (05:36)
[2018-08-01] MEDS: Insulin Detemir Inj 1,000 UNIT/10 ML Vial SQ SCH (05:37)
[2018-08-01 05:52] VITALS: BP 93/53; PULSE 61; TEMP 97.3; O2SAT 95
[2018-08-01] MEDS: Docusate Sodium 100 MG Capsule PO SCH (08:51)
[2018-08-01] MEDS: FLUoxetine 20 MG Capsule PO SCH (08:51)
[2018-08-01 11:11] VITALS: RESP 17
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
--- NOTE | 2018-08-01 16:13 | P.PN ---
Subjective Interval history: ollow-up visit uncontrolled diabetes, dental abscess. Patient seen and examined today in day room. Blood sugars have been well controlled, eating better. Getting ready to be discharged. Patient was unable to secure home, she is homeless. We discussed her diabetes management, she is agreeable with insulin and metformin. Patient was educated about the clinical informatics educator, has a meter. Agrees to check blood sugars. States that she will follow-up at the [facility] as instructed. Physical Exam Vital signs: Vital Signs 07/31/18 17:33 08/01/18 00:00 08/01/18 05:51 Temperature 98.2 F 97.3 F L Pulse Rate 74 61 Respiratory Rate 18 18 16 Blood Pressure 108/65 93/53 L Pulse Oximetry 97 95 08/01/18 09:00 Temperature Pulse Rate Respiratory Rate 17 Blood Pressure Pulse Oximetry Intake & Output 07/31/18 08/01/18 08/01/18 18:59 06:59 18:59 Intake Total 240 / 240 Balance 240 / 240 Intake: Oral 240 / 240 Narrative: GENERAL: AAOx3, no acute distress SKIN: Warm and dry. No rashes HEAD: Atraumatic, normocephalic. EYES: No scleral icterus. No injection or drainage. ENT: Poor dentition, multiple teeth missing, posterior upper molar is fractured with puffy gums surrounding and some edema of right cheek NECK: Supple, trachea midline. No JVD or lymphadenopathy. Normal thyroid. CARDIOVASCULAR: Regular rate and rhythm. No murmurs, gallops, or rubs. RESPIRATORY: Breath sounds clear equal bilaterally. No crackles or wheezes. No accessory muscle use. GASTROINTESTINAL: Abdomen soft, non-tender, nondistended, normal active bowel sounds MUSCULOSKELETAL: No cyanosis, or edema. NEURO: Grossly intact. Results - Labs CBC & Chem 7: 07/26/18 06:55 07/26/18 06:55 Laboratory Results - last 24 hr 07/31/18 07/31/18 08/01/18 16:22 20:42 06:01 POC Glucose 278 H 139 H 199 H 08/01/18 11:00 POC Glucose 157 H Assessment and Plan - Plan 57 year old female with a history of hypothyroidism who was admitted to psychiatry unit due to suicidal ideations. Patient is homeless. She denies having a diagnosis of diabetes. Suicidal ideations - management per psychiatry Diabetes mellitus, newly diagnosed -Blood glucose > 300. -Hemoglobin A1c 15.9 -Medium scale corrective insulin regimen. Blood glucose remain elevated, will Increase Levemir Levemir 12 units twice daily. -Titrate as needed. -Post discharge, it would be difficult to provide insulin as patient is homeless -We could consider Metformin and glimepiride combination. Pt. agreeable with PO now. -Patient home medication will include Metformin if kidney function improved. If not, consider placing patient on 70/30 insulin BID for cost, probably DM is not a new diagnosis. -Patient should follow up with community clinic and will likely need eye exam as well but not urgent. -Appreciate clinical informatics educator input, notes reviewed. Patient initially reluctant to education however she was able to do adequate return demonstration. Was given a meter. -Blood sugars have improved. Patient has been compliant with diet well and psych unit. Has been clear for discharge by psychiatrist. Discussed with clinical informatics educator, pharmacist. Patient okay with insulin, she can keep unrefrigerated for 30 days. She is to keep it in a cooler. Rx given for NPH 70/30, metformin, Synthroid, lancets, syringes, strips. Meter was given by clinical informatics educator. Tooth abscess -Patient was previously treated for this but the abscess has recurred -Completed Keflex -f/u at [facility] Hypothyroidism - Continue Levothyroxine 88mcg Qday. Full code. Ambulation. Patient okay to discharge Diabetic diet to continue, patient again is educated Patient to continue with insulin, will be order NPH 70/30 15 units BID. She is encouraged to f/u at [facility] in 1-2 weeks Instructed to keep insulin in a cool container, ie: small cooler Code Status: Full code Discussed Condition With: Discussed with RN, patient, Dr. Darling, pharmacist, clinical informatics educator Discharge Planning: Discharge per psychiatric team, Home medications reconciled. Prescription is given for metformin, Synthroid as well as NPH 70/30. Prescription also given for strips, lancets as well as syringes. Discussed with pharmacy as well as clinical informatics educator. It is okay for insulin not to be refrigerated up to 30 days. Patient can keep in a small cooler, she has been instructed. Instructed to follow-up at the [facility] in 1-2 weeks. Discussed the need for continued compliance as her blood sugars have improved since she has been here.
== END 2018-08-01 16:40 | disposition home or self-care (01) ==
LOC: NEPD 15:54 → H260 07-23 13:47
PROVIDERS: ADMIT Psychiatry & Neurology Psychiatry; ATTEND Psychiatry & Neurology Psychiatry